=== PATIENT | male | born 1955 | race Caucasian/White ===

== ENCOUNTER 2020-12-12 08:12 | Outpatient (NON) | payer BC, SELFPAY ==
[2020-12-12 21:45] LABS: SARS-CoV-2 RNA PCR Positive
== END 2020-12-12 08:13 ==
LOC: ANHCOVIDDT 08:14
PROVIDERS: Family Provider Internal Medicine; PCP Internal Medicine; Visit Provider Internal Medicine
DX: U07.1 COVID-19 (principal)
CPT/HCPCS: C9803; U0003; U0005

== ENCOUNTER → 2022-06-09 11:26 | Outpatient (CLI) | payer BC, SELFPAY ==
--- NOTE | ~2022-06-09 | US_ITS ---
EXAMINATION:US venous doppler LE LT INDICATION:Left leg pain TECHNIQUE: Multiple grayscale, color flow and Doppler images of the left lower extremity deep venous systems were obtained and reviewed. COMPARISON:No prior studies for comparison. FINDINGS: The common femoral, superficial femoral and popliteal veins demonstrate normal respiratory variation, augmentation and compressibility. Color flow is also seen within the posterior tibial, pe roneal, greater saphenous and profunda veins. IMPRESSION: 1: No lower extremity deep venous thrombosis. Reviewed, dictated and finalized at location A.
== END ==
PROVIDERS: PCP Nurse Practitioner; Visit Provider Nurse Practitioner
DX: M79.662 Pain in left lower leg (principal)
CPT/HCPCS: 93971

== ENCOUNTER → 2022-06-19 11:07 | Outpatient (CLI) | payer BC, SELFPAY ==
--- NOTE | ~2022-06-19 | XR_ITS ---
XR knee LT 3V, XR tibia fibula LT 2V 06/19/2022 11:23 Indication: Left knee and leg pain Procedure: 3 views left knee and 2 views left tibia/fibula Comparison: No prior studies for comparison. Findings: There is moderate tricompartment osteoarthritis of the left knee. No significant joint effu sina. There are vascular calcifications. No acute fracture or traumatic malalignment. There is anatom ic alignment of the left tibia and fibula. No significant soft tissue abnormality. No foreign bodies. Impression: 1: No acute bone or joint abnormality. 2: Moderate tricompartment osteoarthritis of the left knee. Reviewed, dictated and finalized at location A. Impression: 1: No acute bone or joint abnormality. 2: Moderate tricompartment osteoarthritis of the left knee. Impression: 1: No acute bone or joint abnormality. 2: Moderate tricompartment osteoarthritis of the left knee.
== END ==
PROVIDERS: PCP Family Medicine; Visit Provider Family Medicine
DX: M17.12 Unilateral primary osteoarthritis, left knee (principal)
CPT/HCPCS: 73562; 73590

== ENCOUNTER 2022-06-26 14:06 | Outpatient (CLI) | payer BC, SELFPAY ==
--- NOTE | ~2022-06-26 | US_ITS ---
US arterial ankle brachial ind INDICATION: Leg pain TECHNIQUE: Segmental pressures and plethysmographic and Doppler waveforms of the brachial and lower e xtremity arteries were obtained. COMPARISON: None. FINDINGS: Right and left brachial artery pressures of 146 mm Hg and 145 mm Hg, respectively, are concordant (no rmal difference <= 30 mmHg). The right ankle-brachial index (KARYN) is 1.01 (normal >= 0.9-1.0). The right great toe-brachial index (TBI) is 0.71 (normal >= 0.60). The left KARYN is 1.02. The left TBI is 0.73. IMPRESSION: 1. Normal bilateral ankle and toe brachial indices. Reviewed, dictated and finalized at location A.
== END 2022-06-26 14:07 | disposition home or self-care (01) ==
PROVIDERS: PCP Family Medicine; Visit Provider Family Medicine
DX: M79.605 Pain in left leg (principal)
CPT/HCPCS: 93922

== ENCOUNTER 2022-12-31 08:00 | Outpatient (CLI) | payer BC, SELFPAY ==
--- NOTE | ~2022-12-31 | US_ITS ---
EXAMINATION: US art doppler w press VIGNESH THOMAS DATE: 12/31/2022 09:22 INDICATION: Peripheral arterial disease. TECHNIQUE: Segmental pressures and plethysmographic and Doppler waveforms of the brachial and lower e xtremity arteries were obtained. COMPARISON: Ultrasound 06/26/2022 FINDINGS: Right and left brachial artery pressures of 155 mm Hg and 155 mm Hg, respectively, are concordant (no rmal difference <= 30 mmHg). The right low-thigh pressure index is 1.16. The right ankle-brachial index (KARYN) is 1.07 (normal >= 0 .9-1.0). The right great toe-brachial index (TBI) is 0.34 (normal >= 0.65). Arterial Doppler wavefor ms are at least triphasic in common femoral artery and biphasic from superficial femoral artery to th e ankle. The left high-thigh pressure index is 1.41. The left KARYN is 1.14. The left TBI is 0.39. Arterial Dopp ler waveforms are biphasic from common femoral artery to the ankle. IMPRESSION: 1. Decreased TBIs (with interval worsening) and normal ABIs, consistent with arterial occlusive disea se. Note that ABIs may be overestimated if arteries are calcified. Reviewed, dictated and finalized at location A. A AUXILIARY IMPRESSION: 1. Decreased TBIs (with interval worsening) and normal ABIs, consistent with ar terial occlusive disease. Note that ABIs may be overestimated if arteries are c alcified.
== END 2022-12-31 08:01 | disposition home or self-care (01) ==
PROVIDERS: PCP Family Medicine; Visit Provider Nurse Practitioner Family
DX: I73.9 Peripheral vascular disease, unspecified (principal); M79.671 Pain in right foot; M79.672 Pain in left foot; R22.43 Localized swelling, mass and lump, lower limb, bilateral
CPT/HCPCS: 93923

== ENCOUNTER 2023-02-15 16:48 | Outpatient (CLI) | payer BC, SELFPAY ==
--- NOTE | 2023-02-15 17:06 | ECG_ITS ---
Measurements Intervals Breaks Rate: 69 P: 54 VT: 151 QRS: -2 QRSD: 88 T: 29 QT: 377 QTc: 406 Interpretive Statements SINUS RHYTHM EARLY PRECORDIAL R/S TRANSITION BORDERLINE ECG NO PREVIOUS ECG AVAILABLE FOR COMPARISON Electronically Signed On 02-15-2023 21:40:53 CDT by Obie Zambrano D.O.
[2023-02-15 17:08] LABS: Basophils Absolute Auto 0.1 K/mm3 (0.0-0.1); Basophils Percent Auto 0.8 % (0.2-1.2); Eosinophils Absolute Auto 0.1 K/mm3 (0-0.3); Eosinophils Percent Auto 1.2 % (0-4.4); Hematocrit 44.1 % (42.0-52.0); Immature Granulocyte Absolute 0.02 K/mm3 (0.00-0.031); Immature Granulocyte Percent A 0.3 % (0-0.5); Lymphocytes Absolute Auto 2.76 K/mm3 (0.9-3.2); Lymphocytes Percent Auto 35.7 % (18.3-44.2); Mean Corpuscular Hemoglobin 31.7 pg (26-34); Mean Corpuscular Volume 93.2 fl (80-100); Mean Platelet Volume 10.9 fl (7.4-10.4); Monocytes Absolute Auto 0.6 K/mm3 (0.1-0.6); Monocytes Percent Auto 7.1 % (2.6-8.5); Neutrophils Absolute Auto 4.3 K/mm3 (1.3-6.7); Neutrophils Percent Auto 54.9 % (45.5-73.1); Platelet Count Result 205 k/mm3 (150-375); Red Blood Count 4.73 M/mm3 (4.6-6.20); Red Cell Distribution Width 12.7 % (11.5-14.5); White Blood Count 7.7 K/mm3 (4.5-10.0)
[2023-02-15 17:11] LABS: Anion Gap 8 mmol/L (8-16); Blood Urea Nitrogen 21 mg/dL (9-20); Calcium 8.7 mg/dL (8.4-10.2); Carbon Dioxide 32 mmol/L (22-30); Chloride 99 mmol/L (98-107); Estimated Glomerular Filt Rate > 60; Glucose 112 mg/dL (65-110); Potassium 3.8 mmol/L (3.4-5.0); Sodium 139 mmol/L (137-145)
[2023-02-15 18:02] LABS: Appearance Urine Clear (Clear); Bacteria Urine None Seen /hpf; Bilirubin Urine Negative (Negative); Blood Urine 3+ (Negative); Color Urine Yellow (Yellow); Glucose Urine UA Negative (Negative); Ketones Urine Negative (Negative); Leukocyte Esterase Ur Negative LEU/UL (Negative); Nitrate Urine Negative (Negative); Non Pathogenic Casts 0-2; Protein Urine Negative (Negative); RBC Urine 21-50 /hpf (0-2); Specific Grav Ur 1.017 (1.001-1.035); Squamous Epithelial Cell Urine None seen /hpf (Few); WBC Urine 0-5 /hpf; pH Urine 6.5 (5.0-9.0)
[2023-02-15 18:07] LABS: Add Urine Microscopic? YES
== END 2023-02-15 16:49 | disposition home or self-care (01) ==
PROVIDERS: PCP Family Medicine; Visit Provider Nurse Practitioner Family
DX: M17.12 Unilateral primary osteoarthritis, left knee (principal); I10 Essential (primary) hypertension
CPT/HCPCS: 36415; 80048; 81001; 85025; 93005

== ENCOUNTER 2023-03-09 13:38 | Outpatient (CLI) | payer BC, SELFPAY ==
[2023-03-09 15:17] LABS: Albumin Level 4.3 g/dL (3.5-5.1)
[2023-03-09 15:20] LABS: Hemoglobin A1C 5.6 % (<5.7)
[2023-03-09 15:27] LABS: Urine Cotinine NEGATIVE
[2023-03-09 15:33] LABS: INR 1.1; Partial Thromboplastin Time 27.8 SECONDS (22.3-36.8); Prothrombin Time 13.5 Seconds (11.1-14.7)
[2023-03-10 10:45] LABS: Appearance Urine Clear (Clear); Bacteria Urine None Seen /hpf; Bilirubin Urine Negative (Negative); Blood Urine 1+ (Negative); Color Urine Yellow (Yellow); Glucose Urine UA Negative (Negative); Ketones Urine Negative (Negative); Leukocyte Esterase Ur 1+ LEU/UL (Negative); Need Manual Microscopic Reviewed; Nitrate Urine Negative (Negative); Non Pathogenic Casts 0-2; Protein Urine Negative (Negative); Specific Grav Ur 1.006 (1.001-1.035); Squamous Epithelial Cell Urine None seen /hpf (Few); WBC Urine 0-5 /hpf
[2023-03-10 10:47] LABS: Add Urine Microscopic? YES
== END 2023-03-09 13:39 | disposition home or self-care (01) ==
LOC: ANHSURGERY 13:42
PROVIDERS: PCP Family Medicine; Visit Provider Orthopaedic Surgery
DX: Z01.812 Encounter for preprocedural laboratory examination (principal); M17.12 Unilateral primary osteoarthritis, left knee
CPT/HCPCS: 80307; 81001; 82040; 83036; 85610; 85730; 87081

== ENCOUNTER 2023-03-23 01:39 | Day surgery (SDC) | payer BC, SELFPAY ==
[2023-03-09 14:07] VITALS: BP 144/78; PULSE 63; RESP 16; TEMP 37; O2SAT 99; BMI 36.4
--- NOTE | 2023-03-09 14:24 | PC.NURSE ---
Report to the Outpatient Waiting Room, entrance under the green pavilion located off [facility], at time __8:30AM on date _03/23/23 . Planned Procedure Time: __10:30AM . Time changes happen often and if your time is changed the preop area will call you the afternoon before. - You and your visitor will be asked to self-screen and do not enter if you have any COVID symptoms. - A mask is optional within the hospital at this time. Patients may have clear liquids (water, carbonated beverages, clear teas, apple juice) until 3 hours prior to surgery with a maximum of 20 ounces. - No food from midnight until time of surgery Take the following medications with a SIP of water the morning of surgery: ____NONE DO NOT STOP ANY OF YOUR OTHER PRESCRIPTION MEDICATIONS PRIOR TO SURGERY ?EXCEPT THE FOLLOWING Medications to discontinue per physician HOLD ASPIRIN 7 DAYS PRE-OP PER DR HOPKINS(PER PATIENT) Date to take last dose___03/16/23 Please no make-up, nail cook islander, hairspray, perfume, deodorant, or body powder the day of surgery. No jewelry (including any body piercings) or valuables the day of surgery, leave them at home. Please take a shower or bath the night before, or the morning of, surgery with an antibacterial soap. Wear comfortable, loose fitting clothing. Children are encouraged to wear pajamas. - Jewelry must be removed prior to entering the operating room. Rings and piercings that are not removed may be cut off. - The hospital will not accept responsibility for valuables. - Please leave all valuables, including medications, at home the day of surgery. If you are going home after surgery, a licensed log truck driver must drive you home. - NO public transportation without another adult if you receive anesthesia. - We recommend that an adult stay with you for 24 hours following discharge. - We also recommend that you do not drive, make important decision, drink alcoholic beverages, or take any drugs that were not prescribed by your health care provider for at least 24 hours after your discharge time. Follow any additional instructions given to you from your surgeon. If you or anyone in your household have experienced Covid symptoms in the past week, please notify your surgeon or the nurse liaison at the phone number below for possible testing. Telephone instructions given to _PATIENT and asked if any additional questions and then verbalized understanding. Patient advised to call surgeon office or pre surgery nurse liaison [phone] if any additional questions.
[2023-03-23] VITALS (14 sets, daily range): BP systolic 112–168; BP diastolic 66–98; PULSE 64–97; RESP 12–20; TEMP 36.3–36.9; O2SAT 94–100
--- NOTE | ~2023-03-23 | XR_ITS ---
EXAMINATION: [id number]_CR DATE: 03/23/2023 13:16 INDICATION: Postoperative evaluation following left total knee arthroplasty. TECHNIQUE: Anteroposterior and lateral views of the left knee were obtained. COMPARISON: None. FINDINGS: Left total knee arthroplasty without patellar resurfacing appears well seated and in near anatomic al ignment. No fractures identified. Expected postoperative subcutaneous, intra-articular and intra-art icular gas. Anterior skin chris. IMPRESSION: 1. Left total knee arthroplasty, negative for postoperative purposes. Reviewed, dictated and finalized at location L.
--- NOTE | 2023-03-23 07:14 | WPDHPUPDATE1 ---
History and Physical Update Update Date/Time: 03/23/23 07:14 History and Physical has been reviewed, including an updated exam of the patient. There are NO changes in the patient's condition. Risks, benefits, and alternatives have been discussed and questions answered. Patient agrees to proceed with procedure.
[2023-03-23] MEDS: ACETAMINOPHEN 500 MG TABLET 1000 MG PO (08:41)
[2023-03-23] MEDS: LACTATED RINGERS 1,000 ML 30 ML IV CONT ×2 (08:55→13:07)
[2023-03-23] MEDS: TRANEXAMIC ACID 1,000MG/ISO100 1,000 MG/100 ML BAG 200 MG IVPB (10:02)
--- NOTE | 2023-03-23 10:23 | WPDANESEPPF ---
Anes - Initial Pre Proc Eval Procedure: Operation Date: 03/23/23 10:30 Proposed Procedures p Left Total Knee Arthroplasty - Maurice Estevez MD Date/Time: 03/23/23 10:23 Surgeon: Maurice Estevez MD Pre Op Diagnosis: left knee oa Patient Data Age: 67 Gender: M Height: 1.64 m Weight: 94.5 kg Last Vital Signs Temp 36.6 C 03/23/23 09:09 Pulse 64 03/23/23 09:09 Resp 16 03/23/23 09:09 BP 132/83 03/23/23 09:09 Pulse Ox 100 03/23/23 09:09 O2 Del Method Room Air 03/23/23 09:09 Allergies Allergy/AdvReac Type Severity Reaction Status Date / Time sulfamethoxazole Allergy Unknown RASH ARMS, Verified 03/23/23 08:39 UPPER TORSO trimethoprim Allergy Unknown RASH ARMS, Verified 03/23/23 08:39 UPPER TORSO Home Medications Medication Instructions Recorded Confirmed Type aspirin 81 mg tablet,delayed 81 mg PO DAILY 01/11/20 03/23/23 History release hydrochlorothiazide 25 mg tablet 25 mg PO QAM 03/09/23 03/23/23 History ibuprofen 800 mg tablet 800 mg PO BID PRN Pain 03/09/23 03/23/23 History chlorhexidine gluconate 4 % 1 applic topical DAILY #237 mL 03/10/23 03/23/23 Rx topical liquid (Hibiclens) rosuvastatin 10 mg tablet 10 mg PO DAILY #30 tabs 03/17/23 03/23/23 Rx Laboratory Tests 03/23/23 09:00 Blood Type A Positive Antibody Screen Negative Patient hx anesthesia problems: none Family hx anesthesia problems: none Results Review: All pre-operative results and documents have been reviewed as part of the pre-operative evaluation. [facility] Past Medical History Medical History Bilateral foot pain Carotid artery disease without cerebral infarction Carotid occlusion, right Degenerative arthritis of left knee DJD (degenerative joint disease) of knee Essential hypertension History of smoking 25-50 pack years Hyperlipidemia LDL goal <100 Knee pain, left Localized swelling of both lower legs Peripheral artery disease Peripheral artery insufficiency Right knee pain Family History Family History Other Family history of malignant neoplasm Hypertension Social History Social History Smoking packs per day: 1 Smoking cigarettes per day: 20.0 Years smoked: 30 Smoking pack-years: 30.00 Smoking status: Former smoker Tobacco type: cigarettes Second hand tobacco smoke exposure: Yes Smoking end date: 05/22/05 Alcohol intake: current Substance use: never Substance use type: does not use Living arrangements: with family Additional living arrangements comments: Occupation/Education: occupation Gender identity (if verbalized by the patient): Male Sexual Orientation (if Verbalized by the Patient): Straight or Heterosexual Spiritual care concerns: No Anes - Eval Final PreProcedure Day of Procedure 03/23/23 10:23 Patient weight: obese Heart: regular rate and rhythm Lungs: decreased breath sounds Airway: Mallampati scale class II Neurological: alert and oriented Last oral intake: >/= 8 hours ASA classification: III Emergent: no Anesthetic plan: proceed Anesthesia type and monitoring: general LMA and standard monitoring Results Review: All pre-operative results and documents have been reviewed as part of the pre-operative evaluation. Informed Consent: The patient's anesthetic plan and its attendant risks and benefits were discussed with the patient/family/POA. Questions were solicited and answers provided to the satisfaction of the patient/family/POA.
[2023-03-23] MEDS: ceFAZolin 2 GM/D5W 50 ML 2 GM/50 ML BAG IVPB ×2 (10:59→18:43)
[2023-03-23] MEDS: GENTAMICIN BONE CEMENT REFOBACIN 1 EACH TOPICAL (11:44)
--- NOTE | 2023-03-23 12:55 | W.PM.PROC2 ---
Procedure Note - Detailed Date of Procedure 03/23/23 Pre-op Diagnosis left knee oa Post-op Diagnosis Same Procedure Performed L TKA Surgeon Maurice Estevez MD Anesthesia General Description of Procedure THE LEFT KNEE WAS PREPPED AND DRAPED IN THE STERILE FASHION. A MIDLINE SKIN INCISION WAS MADE. A MEDIAL PARAPATELLAR ARTHROTOMY WAS MADE. THE PATELLA WAS EVERTED. THERE WAS TRICOMPARTMENT DJD. THE TOURNIQUET WAS DEFLATED AFTER 7 MIN FROM TIME OF INFLATION. AN INTRAMEDULLARY SARAHY WAS PLACED IN THE FEMUR. A DISTAL FEMORAL CUT WAS MADE IN 5 DEGREES OF VALGUS REMOVING APPROXIMATELY 9 MM OF BONE FROM THE DISTAL FEMUR. THE FEMUR WAS SIZED TO 70. A FEMORAL CUTTING BLOCK WAS PLACED IN 3 DEGREES OF EXTERNAL ROTATION AND IN ALIGNMENT WITH DEEPAK'S LINE AND THE TRANSEPICONDYLAR AXIS. ANTERIOR POSTERIOR AND CHAMFER CUTS WERE MADE. THE CUTS WERE EXCELLENT. NEXT AN INTRAMEDULLARY CUTTING GUIDE WAS PLACED IN THE TIBIA. A TRANS TIBIAL CUT WAS MADE ALONG THE LONG AXIS OF THE TIBIA. APPROXIMATELY 10 MM OF BONE WAS REMOVED FROM THE HIGH SIDE OF THE TIBIA. THE TIBIA WAS THEN PLANED TO A SMOOTH SURFACE. POSTERIOR FEMORAL OSTEOPHYTES WERE REMOVED FROM THE FEMORAL CONDYLES. A 75 TIBIAL TRIAL WAS PLACED IN ALIGNMENT WITH THE 1/3 MEDIAL ASPECT OF THE TIBIAL TUBERCLE. THEN A 70 FEMORAL TRIAL COMPONENT WAS PLACED. BOTH HAD EXCELLENT FITS. EVENTUALLY A 10MM CR POLYETHYLENE TRIAL COMPONENT WAS PLACED. THE KNEE WAS TAKEN THROUGH A RANGE OF MOTION. THE KNEE CAME OUT TO FULL EXTENSION. THERE WAS NO ABNORMAL TILT TO THE PATELLA. THERE WAS GOOD A/P AND VARUS/VALGUS STABILITY. THERE WAS NO EXCESSIVE ROLL BACK WITH FLEXION. THE TRIAL COMPONENTS WERE REMOVED. THE TOURNIQUET WAS INFLATED AGAIN. THEN A 70 FEMORAL COMPONENT AND 75 TIBIAL COMPONENT WITH A 10 CR POLYETHYLENE COMPONENT WERE CEMENTED INTO PLACE. ONCE THE CEMENT WAS HARD THE KNEE WAS TAKEN THROUGH A ROM AGAIN AND FOUND TO BE STABLE WITH NO PATELLA TILT NO EXCESSIVE ROLL BACK WITH FLEXION AND GOOD STABILITY WITH COMPLETE AND FULL EXTENSION. THE TOURNIQUET WAS DEFLATED AGAIN. THE KNEE WAS IRRIGATED WITH STERILE BETADINE AND WATER FOR ABOUT 3 MINUTES. THE BLEEDERS WERE CAUTERIZED. THE ARTHROTOMY WAS REPAIRED WITH NUMBER 1 VICRYL. THE SUB CUTANEOUS LAYER WITH 2-0 VICRYL AND THE SKIN WITH TOM. THE WOUND WAS WASHED AND A STERILE DRESSING WAS APPLIED. PATIENT WAS EXTUBATED. Estimated Blood Loss 50 Pathology None sent Complications No immediate complications Condition Stable Disposition PACU
[2023-03-23] MEDS: fentaNYL CITRATE INJ (*CRX) 100 MCG/2 ML VIAL 25 MCG IV PUSH ×4 (13:05→13:50)
[2023-03-23] MEDS: diazePAM INJ (*CRX) 10 MG/2 ML SYRINGE 2.5 MG IV PUSH (13:31)
--- NOTE | 2023-03-23 13:34 | WPDANESPNB ---
Anes - Peripheral Nerve Block Date/Time: 03/23/23 13:34 I have discussed with the patient/family/POA the placement of a peripheral nerve block for post-operative pain management, including associated risks, benefits, complications, and side effects. Alternative methods of post-operative analgesia were detailed. Questions were solicited and answers provided to the satisfaction of the patient/family/POA. Time-Out: A pre-procedural Time-Out was completed immediately before starting the procedure and confirmed: Patient Identification, Site, Procedure, Patient Position and the Availability of Requisite Equipment. Clinical Indications: Acute post-operative pain management requested by the operative surgeon. Nerve Block Insertion Note Anes-nerve block: adductor canal left Patient position: supine Skin prep: chlorhexidine Needle: 22 gauge, stimulating, insulated echogenic needle. Needle length: 80 mm Technique: ultrasound Technique comment: done post op in recovery Injectate: bupivacaine 0.5% with epi 5 mcg/ml (30ml no epi) and dexamethasone (mg) (4) Observations: tolerated well Complications: none Procedure start time:: 1320 Procedure end time:: 1326
--- NOTE | 2023-03-23 14:33 | PC.NURSE ---
This patient, Dino Augustine, was admitted to 2 Medical Room 242-01. Patient/family oriented to hospital policies and general routines including ID bracelet, bed and alarms, visiting hours, pain management, procedures, bathroom and other care routines, personal items, smoking policy, room service/diet, and visiting hours. Information on how to activate the Rapid Response Team has been discussed. Patient/Family are encouraged to report perceived risks to care and to ask questions if they do not understand what they are told or what they should do.
[2023-03-23] MEDS: SODIUM CHLORIDE 0.9% IV 1,000 ML 125 ML IV CONT (16:28)
[2023-03-23] MEDS: KETOROLAC 15 MG/ML VIAL (*BKC) IV PUSH ×2 (16:29→23:09)
[2023-03-23] MEDS: SENNA/DOCUSATE SODIUM TABLET 2 TAB PO (16:29)
[2023-03-23] MEDS: ASPIRIN 325 MG ENTERIC TABLET PO (20:54)
[2023-03-23] MEDS: FAMOTIDINE 20 MG TABLET PO (20:54)
[2023-03-24] MEDS: ceFAZolin 2 GM/D5W 50 ML 2 GM/50 ML BAG IVPB ×2 (02:59→10:37)
[2023-03-24 03:56] VITALS: BP 112/66; PULSE 64; RESP 18; TEMP 36.1; O2SAT 96
[2023-03-24] MEDS: KETOROLAC 15 MG/ML VIAL (*BKC) IV PUSH ×2 (05:38→12:03)
[2023-03-24 05:41] LABS: Basophils Percent Auto 0.1 % (0.2-1.2); Hematocrit 37.1 % (42.0-52.0); Hemoglobin 12.3 g/dL (14.0-18.0); Immature Granulocyte Absolute 0.14 K/mm3 (0.00-0.031); Immature Granulocyte Percent A 0.7 % (0-0.5); Lymphocytes Absolute Auto 1.22 K/mm3 (0.9-3.2); Lymphocytes Percent Auto 5.8 % (18.3-44.2); Mean Corpuscular HGB Conc 33.2 g/dl (32-36); Mean Corpuscular Hemoglobin 31.3 pg (26-34); Mean Corpuscular Volume 94.4 fl (80-100); Mean Platelet Volume 11.2 fl (7.4-10.4); Monocytes Absolute Auto 1.9 K/mm3 (0.1-0.6); Monocytes Percent Auto 9.1 % (2.6-8.5); Neutrophils Absolute Auto 17.8 K/mm3 (1.3-6.7); Neutrophils Percent Auto 84.3 % (45.5-73.1); Platelet Count Result 180 k/mm3 (150-375); Red Blood Count 3.93 M/mm3 (4.6-6.20); Red Cell Distribution Width 12.6 % (11.5-14.5); White Blood Count 21.1 K/mm3 (4.5-10.0)
[2023-03-24 05:52] LABS: Anion Gap 6 mmol/L (8-16); Blood Urea Nitrogen 20 mg/dL (9-20); Calcium 8.3 mg/dL (8.4-10.2); Carbon Dioxide 26 mmol/L (22-30); Chloride 102 mmol/L (98-107); Estimated CRCL calculation 75 ml/min; Estimated Glomerular Filt Rate > 60; Glucose 126 mg/dL (65-110); Potassium 4.3 mmol/L (3.4-5.0); Sodium 134 mmol/L (137-145)
[2023-03-24] MEDS: ROSUVASTATIN 10 MG TABLET PO (08:13)
[2023-03-24] MEDS: FAMOTIDINE 20 MG TABLET PO (08:13)
[2023-03-24] MEDS: hydroCHLOROthiazide 25 MG TABLET PO (08:13)
[2023-03-24] MEDS: polyethylene glycoL 3350 17 GM POWD.PACK PO (08:13)
[2023-03-24] MEDS: ASPIRIN 325 MG ENTERIC TABLET PO (08:13)
[2023-03-24] MEDS: SENNA/DOCUSATE SODIUM TABLET 2 TAB PO ×2 (08:13→16:23)
[2023-03-24] MEDS: oxyCODONE/ACETAMINOPHEN (*CRX) 5-325 MG TABLET 1 TABLET PO (09:11)
[2023-03-24 09:34] VITALS: BP 119/76; PULSE 71; RESP 16; TEMP 36.6; O2SAT 96
[2023-03-24 11:56] VITALS: BP 122/74; PULSE 64; RESP 18; TEMP 36.7; O2SAT 96
--- NOTE | 2023-03-24 12:13 | WPDANESPN ---
Anes - Prog Note Post-Op Date/Time: 03/24/23 12:13 Vital Signs: Last Vital Signs Temp 36.6 C 03/24/23 09:34 Pulse 71 03/24/23 09:34 Resp 16 03/24/23 09:34 BP 119/76 03/24/23 09:34 Pulse Ox 96 03/24/23 09:34 O2 Del Method Room Air 03/24/23 08:59 O2 Flow Rate 8 03/23/23 13:05 Pain Score (VAS): 0 I/O: Intake & Output 03/23/23 03/24/23 03/24/23 23:59 07:59 15:59 Intake Total 570 550 480 Output Total 500 300 Balance 70 250 480 Laboratory Tests 03/24/23 05:13 03/24/23 05:13 03/24/23 05:13 WBC 21.1 H RBC 3.93 L Hgb 12.3 L Hct 37.1 L MCV 94.4 MCH 31.3 MCHC 33.2 RDW 12.6 Plt Count 180 MPV 11.2 H Immature Gran % (Auto) 0.7 H Neut % (Auto) 84.3 H Lymph % (Auto) 5.8 L [place] % (Auto) 9.1 H Eos % (Auto) 0.0 Baso % (Auto) 0.1 L Lymph # (Auto) 1.22 [place] # (Auto) 1.9 H Eos # (Auto) 0.0 Baso # (Auto) 0.0 Abs Immat Gran (auto) 0.14 H Absolute Neuts (auto) 17.8 H Absolute Nucleated RBC 0.0 Nucleated RBC % 0.0 Sodium 134 L Potassium 4.3 Chloride 102 Carbon Dioxide 26 Anion Gap 6 L BUN 20 Creatinine 0.90 Estim Creat Clear Calc 75 Estimated GFR > 60 Glucose 126 H Calcium 8.3 L Patient Feedback: Patient satisfied with anesthetic care.
--- NOTE | 2023-03-24 13:30 | PCCCNOTE ---
On 03/24/23, the student, [Mya Kraus ], provided care and completed [facility] documentation on this patient. I have reviewed the student's documentation and agree with the findings.
--- NOTE | 2023-03-24 15:56 | PM.DS ---
DS: Admitting Diagnosis Discharge Date 03/24/23 Admitting Diagnosis LEFT KNEE DJD DS: Discharge Diagnosis Discharge Diagnosis (1) S/P total knee arthroplasty: Code(s): Z96.659 - Presence of unspecified artificial knee joint Status: Acute Assessment and Plan: LEFT TKA POD 1 DOING WELL. F/U IN 3 WEEKS ORTHOPEDICS Plan F/U IN 3 WEEKS DS: Summary Hospital Course Reason for hospitalization: LEFT TKA PATIENT WAS ADMITTED S/P TOTAL KNEE ARTHROPLASTY FOR POSTOPERATIVE MEDICAL MANAGEMENT, PAIN CONTROL AND MOBILIZATION WITH PHYSICAL AND OCCUPATIONAL THERAPY. THE PATIENT PROGRESSED WELL WITH PT/OT. LABS AND VITALS REMAINED STABLE AND PAIN WELL CONTROLLED. THE PATIENT HAS BEEN CLEARED TO BE DISCHARGED KNEE. FOLLOW UP APPOINTMENT SCHEDULED. DISCHARGE INSTRUCTIONS DISCUSSED AT LENGTH WITH THE PATIENT. MEDICATIONS REVIEWED. Hospital Course: PATIENT WAS ADMITTED S/P TOTAL KNEE ARTHROPLASTY FOR POSTOPERATIVE MEDICAL MANAGEMENT, PAIN CONTROL AND MOBILIZATION WITH PHYSICAL AND OCCUPATIONAL THERAPY. THE PATIENT PROGRESSED WELL WITH PT/OT. LABS AND VITALS REMAINED STABLE AND PAIN WELL CONTROLLED. THE PATIENT HAS BEEN CLEARED TO BE DISCHARGED KNEE. FOLLOW UP APPOINTMENT SCHEDULED. DISCHARGE INSTRUCTIONS DISCUSSED AT LENGTH WITH THE PATIENT. MEDICATIONS REVIEWED. Status at Discharge Cognitive/behavioral status at discharge: STABLE Functional status at discharge: uses cane/walker Time Spent with Patient Time attestation: Total time spent providing and/or coordinating discharge services: Exam Extrem: Other: VSS AFEBRILE DRESSING DRY NV INTACT, DOPPLERABLE AND PALPABLE PULSES, CALF SOFT NON TENDER NEG HOMANS SIGN DS: Data Data Completed and Pending Labs on day of discharge: Labs from last 24 hours 03/24/23 05:13 WBC 21.1 H RBC 3.93 L Hgb 12.3 L Hct 37.1 L MCV 94.4 MCH 31.3 MCHC 33.2 RDW 12.6 Plt Count 180 MPV 11.2 H Immature Gran % (Auto) 0.7 H Neut % (Auto) 84.3 H Lymph % (Auto) 5.8 L [place] % (Auto) 9.1 H Eos % (Auto) 0.0 Baso % (Auto) 0.1 L Lymph # (Auto) 1.22 [place] # (Auto) 1.9 H Eos # (Auto) 0.0 Baso # (Auto) 0.0 Abs Immat Gran (auto) 0.14 H Absolute Neuts (auto) 17.8 H Absolute Nucleated RBC 0.0 Nucleated RBC % 0.0 Sodium 134 L Potassium 4.3 Chloride 102 Carbon Dioxide 26 Anion Gap 6 L BUN 20 Creatinine 0.90 Estim Creat Clear Calc 75 Estimated GFR > 60 Glucose 126 H Calcium 8.3 L Procedures/Treatments: LEFT TKA Discharge Plan Discharge Patient Disposition: Home Health Service Discharge Instructions: Post Op Total Knee Replacement Instructions Dr. Maurice Esteevz [phone] Your dressing will be changed prior to your discharge. You will be sent home with one additional dressing to be changed on post op day 7 by the home health RN. Your chris will be removed on the 14th day after surgery and steri-strips will be placed. Please practice good hand hygiene and do not touch your incision in order to prevent infection. You may shower with your dressing but do not submerge in a bath tub. Do not drive or operate machinery until you are released by Dr. Estevez. Do not walk without a walker for any reason until you are released by Dr. Estevez. Continue to use your ice machine. Please use a towel or pillow case to protect your skin before applying your ice machine. Do NOT place a pillow under your knee. You may use a pillow from the calf down if needed. This will prevent a flexion contracture postoperatively. You may begin use of your CPM machine at home if you have been given one pre-operatively. DO NOT USE WHILE YOU ARE SLEEPING. Your first post op appointment was sent to you via mail preoperatively. If you have any questions or are unable to make your appointment, please contact our office for scheduling questions. Your medications have been sent to your pharmacy. You have been sent home with pain medication. Please pick up attendant an over the count
== END 2023-03-24 16:57 | disposition home health service (06) ==
LOC: ANHSURGERY 08:28 → ANH2MED 14:18
PROVIDERS: PCP Family Medicine; Visit Provider Orthopaedic Surgery
PROC: (CPT 27447; principal; 2023-03-23 10:30)
DX: M17.12 Unilateral primary osteoarthritis, left knee (principal); G89.18 Other acute postprocedural pain; I10 Essential (primary) hypertension; I73.9 Peripheral vascular disease, unspecified; E78.5 Hyperlipidemia, unspecified; I65.21 Occlusion and stenosis of right carotid artery; Z79.82 Long term (current) use of aspirin; Z87.891 Personal history of nicotine dependence; E66.9 Obesity, unspecified; Z68.34 Body mass index [BMI] 34.0-34.9, adult
CPT/HCPCS: 27447; 64447; 36415; 73560; 80048; 85025; 86850; 86900; 86901; 97110; 97116; 97161; 97165; 97535; A9270; C1713; C1776; J0171; J0690; J1100; J1885; J2250; J2270; J2370; J2405; J2704; J2795; J3010; J3360; J7030; J7120

== ENCOUNTER 2023-06-09 10:00 | Outpatient (RCR) | payer BC, SELFPAY ==
--- NOTE | 2023-04-22 15:47 | PTOPEVAL1 ---
Assessment and note entered by Beckie Luna DPT Evaluation Information Assessment Status Evaluation Subjective Information Pt is s/p L TKA on 03/23/23. Reports a lot of stiffness with bending still. Had home health therapy until about 2 weeks ago. Highest pain 6-7/ 10 and lowest 0/10. Returns to [place] in about 3 months. 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 Tentative return date in approximately 2 months. Has been able to return to most ADL's. Has stairs to his basement, is not able to alternate his feet yet. No assistive device anymore. Patient goal: walk normally, get back to work. Reported Pain Level Pain Score 4: Self Report Assessment PT Clinical Summary The patient is presenting to skilled therapy s/p L TKA on 03/23/23. He presents with decreased range of motion, decreased strength, and gait/stair impairments which are contributing to his pain and difficulty walking with a normal gait pattern and returning to work. He will highly benefit from therapy to address his impairments and return to prior level of function. Plan of Care Interventions Electrical Stimulation,Gait Training,Hot Pack/Cold Pack,Manual Therapy,Neuro Re-education,Patient/ Caregiver Education,Therapeutic Activities, Therapeutic Exercise PT Services Indicated Yes Treatment Frequency and 2 times a week for 4 weeks Duration These treatments will address the objective and functional deficits as defined above. The patient will be advanced safely and appropriately in order for the patient to progress towards his/her prior level of function. Additional exercises will be introduced and as well as a comprehensive home exercise program upon discharge, if needed, ?to ensure carryover of functional gains achieved in the clinic. This treatment plan has been reviewed and agreement upon by the patient.
--- NOTE | 2023-04-22 15:48 | OPREHPOC ---
Outpatient Therapy Plan of Care This is a Multidisciplinary Plan of Care that may contain components documented by all disciplines (PT, OT, and ST.) PT Problem 1 PT Problem #1 Knowledge Deficit PT Goal 1 Goal 1. Patient will perform independent HEP Target Visit 8 PT Problem 2 PT Problem #2 Pain PT Goal 1 Goal 1. Patient will do household and community ambulation with pain no higher than 3/10 in order to prepare for returning to work Target Visit 8 PT Problem 3 PT Problem #3 Impaired Range of Motion PT Goal 1 Goal 1. Patient will demo 120 degrees active left knee flexion for stairs Target Visit 8 PT Goal 2 Goal 2. Patient will demo 0 degrees left knee extension to normalize gait pattern Target Visit 8
--- NOTE | 2023-05-20 13:10 | OPREHPOC ---
Outpatient Therapy Plan of Care This is a Multidisciplinary Plan of Care that may contain components documented by all disciplines (PT, OT, and ST.) PT Problem 1 PT Problem #1 Knowledge Deficit PT Goal 1 Goal 1. Patient will perform independent HEP Target Visit 8 Progress Met PT Problem 2 PT Problem #2 Pain PT Goal 1 Goal 1. Patient will do household and community ambulation with pain no higher than 3/10 in order to prepare for returning to work Target Visit 8 Progress Met PT Goal 2 Goal NEW GOAL 2. Patient will return to work with pain no higher than 2/10 Target Visit 16 PT Problem 3 PT Problem #3 Impaired Range of Motion PT Goal 1 Goal 1. Patient will demo 120 degrees active left knee flexion for stairs Target Visit 8 Progress Partially Met Comment 111 PT Goal 2 Goal 2. Patient will demo 0 degrees left knee extension to normalize gait pattern Target Visit 8 Progress Met
--- NOTE | 2023-05-20 13:10 | PTOPPROG ---
Assessment and note entered by Beckie Luna DPT Evaluation Information Assessment Status Progress Subjective Information Highest pain recently 2/10 and lowest 0/10. Has been able to be more mobile at home but needs breaks at times. Navigating stairs to his basement but is still not able to do a reciprocal pattern due to no railing and they are steep. Returns to [place] some time in June. Has not yet returned to work. Assessment PT Clinical Summary The patient has made good progress in therapy and demonstrates improved range of motion, improved strength, and greatly decreased pain. He has been able to return to ADL's with minimal limitation but has not yet returned to work. He continues to lack full knee flexion, currently at 111 degrees. He will benefit from further therapy to improve motion, further decrease pain, and allow for all activities including work. Plan of Care Interventions Electrical Stimulation,Gait Training,Hot Pack/Cold Pack,Manual Therapy,Neuro Re-education,Patient/ Caregiver Education,Therapeutic Activities, Therapeutic Exercise,Self-Care/Home Management PT Services Indicated Yes Treatment Frequency and 1-2 times a week for 4 weeks Duration These treatments will address the objective and functional deficits as defined above. The patient will be advanced safely and appropriately in order for the patient to progress towards his/her prior level of function. Additional exercises will be introduced and as well as a comprehensive home exercise program upon discharge, if needed, ?to ensure carryover of functional gains achieved in the clinic. This treatment plan has been reviewed and agreement upon by the patient.
--- NOTE | 2023-06-15 09:47 | PTOPDC ---
Assessment and note entered by NORMA YoussefT Evaluation Information Assessment Status Discharge - Pt Not Present Subjective Information Assessment PT Clinical Summary Patient is self discharging from therapy- reports he has returned to work without issue. Plan of Care PT Services Indicated No
== END 2023-06-15 15:03 | disposition home or self-care (01) ==
LOC: ANHPT 10:00
PROVIDERS: PCP Family Medicine; Visit Provider Orthopaedic Surgery
DX: Z47.1 Aftercare following joint replacement surgery (principal); Z96.652 Presence of left artificial knee joint
CPT/HCPCS: 97014; 97110; 97116; 97140; 97161; 97530; G0283

== ENCOUNTER 2023-07-23 09:11 | Outpatient (CLI) | payer BC, SELFPAY ==
[2023-07-23 12:32] LABS: Alanine Aminotransferase 19 U/L (6-50); Albumin Level 4.3 g/dL (3.5-5.1); Alkaline Phosphatase 75 U/L (38-126); Anion Gap 6 mmol/L (8-16); Aspartate Amino Transferase 41 U/L (17-59); Bilirubin,Total 0.8 mg/dL (0.2-1.3); Blood Urea Nitrogen 17 mg/dL (9-20); Calcium 8.8 mg/dL (8.4-10.2); Carbon Dioxide 30 mmol/L (22-30); Chloride 103 mmol/L (98-107); Estimated Glomerular Filt Rate > 60; Glucose 94 mg/dL (65-110); HDL Direct 46 mg/dL; Potassium 3.8 mmol/L (3.4-5.0); Sodium 139 mmol/L (137-145)
[2023-07-23 12:43] LABS: LDL Cholesterol Direct 77 mg/dL
[2023-07-23 13:01] LABS: Prostate Specific Antigen 1.1 ng/mL (< OR = 4.0)
[2023-07-23 13:31] LABS: Cholesterol 158 mg/dL (0-200); Triglycerides 150 mg/dL (<150)
== END 2023-07-23 09:12 | disposition home or self-care (01) ==
LOC: ANHGOSHLAB 09:12
PROVIDERS: PCP Family Medicine; Visit Provider Family Medicine
DX: E78.5 Hyperlipidemia, unspecified (principal); I10 Essential (primary) hypertension; Z12.5 Encounter for screening for malignant neoplasm of prostate
CPT/HCPCS: 36415; 80053; 80061; 84153; G0103

== ENCOUNTER 2023-08-25 09:49 | Outpatient (CLI) | payer BC, SELFPAY ==
[2023-08-25 10:52] LABS: Basophils Absolute Auto 0.1 K/mm3 (0.0-0.1); Basophils Percent Auto 0.8 % (0.2-1.2); Eosinophils Absolute Auto 0.1 K/mm3 (0-0.3); Eosinophils Percent Auto 0.8 % (0-4.4); Hematocrit 42.6 % (42.0-52.0); Hemoglobin 14.2 g/dL (14.0-18.0); Immature Granulocyte Absolute 0.02 K/mm3 (0.00-0.031); Immature Granulocyte Percent A 0.3 % (0-0.5); Lymphocytes Percent Auto 41.7 % (18.3-44.2); Mean Corpuscular HGB Conc 33.3 g/dl (32-36); Mean Corpuscular Hemoglobin 30.9 pg (26-34); Mean Corpuscular Volume 92.6 fl (80-100); Mean Platelet Volume 11.4 fl (7.4-10.4); Monocytes Absolute Auto 0.7 K/mm3 (0.1-0.6); Monocytes Percent Auto 11.5 % (2.6-8.5); Neutrophils Absolute Auto 2.7 K/mm3 (1.3-6.7); Neutrophils Percent Auto 44.9 % (45.5-73.1); Platelet Count Result 179 k/mm3 (150-375); Red Cell Distribution Width 13.1 % (11.5-14.5)
[2023-08-25 11:01] LABS: Appearance Urine Clear (Clear); Bacteria Urine None Seen /hpf; Bilirubin Urine Negative (Negative); Blood Urine 1+ (Negative); Color Urine Yellow (Yellow); Glucose Urine UA Negative (Negative); Ketones Urine Negative (Negative); Leukocyte Esterase Ur Trace LEU/UL (Negative); Nitrate Urine Negative (Negative); Non Pathogenic Casts 0-2; Protein Urine Negative (Negative); RBC Urine 0-2 /hpf (0-2); Specific Grav Ur 1.005 (1.001-1.035); Squamous Epithelial Cell Urine None seen /hpf (Few); Urobilinogen Urine 0.2 mg/dL (<2.0); WBC Urine 0-5 /hpf; pH Urine 7.5 (5.0-9.0)
[2023-08-25 11:05] LABS: Urine Cotinine NEGATIVE
[2023-08-25 11:08] LABS: Partial Thromboplastin Time 27.3 SECONDS (22.3-36.8); Prothrombin Time 13.4 Seconds (11.1-14.7)
[2023-08-25 11:11] LABS: Hemoglobin A1C 5.7 % (<5.7)
[2023-08-25 11:30] LABS: Add Urine Microscopic? YES
== END 2023-08-25 09:50 | disposition home or self-care (01) ==
LOC: ANHSURGERY 09:54
PROVIDERS: PCP Family Medicine; Visit Provider Orthopaedic Surgery
DX: M17.11 Unilateral primary osteoarthritis, right knee (principal); Z01.818 Encounter for other preprocedural examination
CPT/HCPCS: 80307; 81001; 83036; 85025; 85610; 85730; 87081

== ENCOUNTER 2023-09-09 16:20 | Observation (INO) | payer BC, SELFPAY ==
[2023-08-25 10:11] VITALS: BMI 33.9
--- NOTE | 2023-08-25 10:12 | PC.NURSE ---
Report to the Outpatient Waiting Room, entrance under the green pavilion located off [facility], at time ___0600____ on date ___09/08/23____. Planned Procedure Time: __0730 . Time changes happen often and if your time is changed the preop area will call you the afternoon before. - You and your visitor will be asked to self-screen and do not enter if you have any COVID symptoms. - A mask is optional within the hospital at this time. Patients may have clear liquids (water, carbonated beverages, clear teas, apple juice) until 3 hours prior to surgery with a maximum of 20 ounces. - No food from midnight until time of surgery - Infants may have breast milk until 4 hours before surgery, formula 6 hours prior to surgery. - Children will be allowed to drink immediately following surgery. If applicable, please bring a bottle or sippy cup to assist with drinking. Juice, water, soda, and popsicles are readily available. For infants on formula, please bring formula the day of surgery. Pacifiers are allowed. Take the following medications with a SIP of water the morning of surgery: ___NONE DO NOT STOP ANY OF YOUR OTHER PRESCRIPTION MEDICATIONS PRIOR TO SURGERY ?EXCEPT THE FOLLOWING Medications to discontinue per physician __ASPIRIN PER DR HOPKINS (NEXT APPT 08/27/23) Please no make-up, nail guyanese, hairspray, perfume, deodorant, or body powder the day of surgery. No jewelry (including any body piercings) or valuables the day of surgery, leave them at home. Please take a shower or bath the night before, or the morning of, surgery with an antibacterial soap. Wear comfortable, loose fitting clothing. Children are encouraged to wear pajamas. - Jewelry must be removed prior to entering the operating room. Rings and piercings that are not removed may be cut off. - The hospital will not accept responsibility for valuables. - Please leave all valuables, including medications, at home the day of surgery. If you are going home after surgery, a licensed motorcycle delivery driver must drive you home. - NO public transportation without another adult if you receive anesthesia. - We recommend that an adult stay with you for 24 hours following discharge. - We also recommend that you do not drive, make important decision, drink alcoholic beverages, or take any drugs that were not prescribed by your health care provider for at least 24 hours after your discharge time. For Pediatric surgeries, we recommend two adults accompany the child home. Follow any additional instructions given to you from your surgeon. If you or anyone in your household have experienced Covid symptoms in the past week, please notify your surgeon or the nurse liaison at the phone number below for possible testing. VERBAL AND WRITTEN instructions given to _PATIENT and asked if any additional questions and then verbalized understanding. Patient advised to call surgeon office or pre surgery nurse liaison [phone] if any additional questions.
[2023-08-25 10:25] VITALS: BP 131/84; PULSE 63; RESP 18; TEMP 36.9; O2SAT 99
[2023-09-08] VITALS (13 sets, daily range): BP systolic 126–164; BP diastolic 52–98; PULSE 69–98; RESP 8–18; TEMP 36.4–36.6; O2SAT 93–100; BMI 33.2
[2023-09-08] MEDS: ACETAMINOPHEN 500 MG TABLET 1000 MG PO (06:39)
--- NOTE | 2023-09-08 06:56 | WPDANESEPPF ---
Anes - Initial Pre Proc Eval Procedure: Operation Date: 09/08/23 07:30 Proposed Procedures p Right Total Knee Arthroplasty - Maurice Estevez MD Date/Time: 09/08/23 06:56 Surgeon: Maurice Estevez MD Pre Op Diagnosis: Rt Knee DJD Patient Data Age: 68 Gender: M Height: 1.65 m Weight: 90.6 kg Last Vital Signs Temp 36.4 C L 09/08/23 06:32 Pulse 69 09/08/23 06:32 Resp 18 09/08/23 06:32 BP 136/69 09/08/23 06:32 Pulse Ox 99 09/08/23 06:32 O2 Del Method Room Air 08/25/23 10:25 Allergies Allergy/AdvReac Type Severity Reaction Status Date / Time sulfamethoxazole Allergy Unknown RASH ARMS, Verified 09/08/23 06:12 UPPER TORSO trimethoprim Allergy Unknown RASH ARMS, Verified 09/08/23 06:12 UPPER TORSO Home Medications Medication Instructions Recorded Confirmed Type aspirin 81 mg tablet,delayed 81 mg PO DAILY 01/11/20 09/08/23 History release hydrochlorothiazide 25 mg tablet 25 mg PO QAM 03/09/23 09/08/23 History rosuvastatin 10 mg tablet 10 mg PO DAILY #90 tabs 07/27/23 09/08/23 Rx acetaminophen 500 mg capsule 500 mg PO Q6H PRN Pain 08/25/23 09/08/23 History chlorhexidine gluconate 4 % 1 applic topical ONCE #237 mL 09/01/23 09/08/23 Rx topical liquid (Hibiclens) Patient hx anesthesia problems: none Family hx anesthesia problems: none Results Review: All pre-operative results and documents have been reviewed as part of the pre-operative evaluation. [facility] Past Medical History Medical History Bilateral foot pain Carotid artery disease without cerebral infarction Carotid occlusion, right Degenerative arthritis of left knee DJD (degenerative joint disease) of knee Essential hypertension History of smoking 25-50 pack years Hyperlipidemia LDL goal <100 Knee pain, left Localized swelling of both lower legs Peripheral artery disease Peripheral artery insufficiency Right knee pain Surgical History Surgical History S/P total knee arthroplasty Left TKA 03/23/23 Family History Family History Other Family history of malignant neoplasm Hypertension Social History Social History Smoking packs per day: 1 Smoking cigarettes per day: 20.0 Years smoked: 30 Smoking pack-years: 30.00 Smoking status: Former smoker Tobacco type: cigarettes Second hand tobacco smoke exposure: Yes Smoking end date: 11/22/04 Additional smoking assessment comments: DENIES ANY FORM OF TOBACCO USE Alcohol intake: former Substance use: never Substance use type: does not use Lack of Transportation: No Lack of Food: Never True Current Housing: I Have Housing Concerned About Future Housing: No Difficulty Paying Gas/Electric Bills: No Difficulty Paying for Meds: No Currently Unemployed: No Education: High School Diploma/GED Difficulty w/ Childcare or Family Care: No Living arrangements: with family Additional living arrangements comments: Occupation/Education: occupation Gender identity (if verbalized by the patient): Male Sexual Orientation (if Verbalized by the Patient): Straight or Heterosexual Spiritual care concerns: No Anes - Eval Final PreProcedure Day of Procedure 09/08/23 06:56 Patient weight: obese Heart: regular rate and rhythm Lungs: clear to auscultation Airway: Mallampati scale class II Neurological: alert and oriented Last oral intake: >/= 8 hours ASA classification: III Emergent: no Anesthetic plan: proceed Anesthesia type and monitoring: general LMA and standard monitoring Results Review: All pre-operative results and documents have been reviewed as part of the pre-operative evaluation. Informed Consent: The patient's anesthetic plan and its attendant risks and benefits were discussed with sly
[2023-09-08] MEDS: LACTATED RINGERS 1,000 ML 30 ML IV CONT ×2 (06:57→10:12)
--- NOTE | 2023-09-08 07:28 | WPDHPUPDATE1 ---
History and Physical Update Update Date/Time: 09/08/23 07:28 History and Physical has been reviewed, including an updated exam of the patient. There are NO changes in the patient's condition. Risks, benefits, and alternatives have been discussed and questions answered. Patient agrees to proceed with procedure.
--- NOTE | 2023-09-08 07:40 | WPDANESPNB ---
Anes - Peripheral Nerve Block Date/Time: 09/08/23 07:40 I have discussed with the patient/family/POA the placement of a peripheral nerve block for post-operative pain management, including associated risks, benefits, complications, and side effects. Alternative methods of post-operative analgesia were detailed. Questions were solicited and answers provided to the satisfaction of the patient/family/POA. Time-Out: A pre-procedural Time-Out was completed immediately before starting the procedure and confirmed: Patient Identification, Site, Procedure, Patient Position and the Availability of Requisite Equipment. Clinical Indications: Acute post-operative pain management requested by the operative surgeon. Nerve Block Insertion Note Anes-nerve block: femoral right Patient position: supine Skin prep: chlorhexidine Needle: 22 gauge, stimulating, insulated echogenic needle. Needle length: 50 mm Technique: nerve stimulation lost at (mA) (0.3) Injectate: bupivacaine 0.5% with epi 5 mcg/ml (30cc no epi) and dexamethasone (mg) (8) Complications: none Procedure start time:: 734 Procedure end time:: 739
[2023-09-08] MEDS: ceFAZolin 2 GM/D5W 50 ML 2 GM/50 ML BAG IVPB ×3 (07:43→21:44)
[2023-09-08] MEDS: TRANEXAMIC ACID 1,000MG/ISO100 1,000 MG/100 ML BAG 200 MG IVPB (07:43)
[2023-09-08] MEDS: TRANEXAMIC ACID 1,000 MG/10 ML AMPUL 1000 MG IV PUSH (09:14)
[2023-09-08] MEDS: GENTAMICIN BONE CEMENT REFOBACIN 1 EACH TOPICAL (09:21)
--- NOTE | 2023-09-08 10:14 | W.PM.PROC2 ---
Procedure Note - Detailed Date of Procedure 09/08/23 Pre-op Diagnosis Rt Knee DJD Post-op Diagnosis Same Procedure Performed R TKA Surgeon Maurice Estevez MD Anesthesia General Description of Procedure THE RIGHT KNEE WAS PREPPED AND DRAPED IN THE STERILE FASHION. A MIDLINE SKIN INCISION WAS MADE. A MEDIAL PARAPATELLAR ARTHROTOMY WAS MADE. THE PATELLA WAS EVERTED. THERE WAS TRICOMPARTMENT DJD. THE TOURNIQUET WAS DEFLATED AFTER 5 MIN FROM TIME OF INFLATION. AN INTRAMEDULLARY SARAHY WAS PLACED IN THE FEMUR. A DISTAL FEMORAL CUT WAS MADE IN 5 DEGREES OF VALGUS REMOVING APPROXIMATELY 9 MM OF BONE FROM THE DISTAL FEMUR. THE FEMUR WAS SIZED TO 70. A FEMORAL CUTTING BLOCK WAS PLACED IN 3 DEGREES OF EXTERNAL ROTATION AND IN ALIGNMENT WITH DEEPAK'S LINE AND THE TRANSEPICONDYLAR AXIS. ANTERIOR POSTERIOR AND CHAMFER CUTS WERE MADE. THE CUTS WERE EXCELLENT. NEXT AN INTRAMEDULLARY CUTTING GUIDE WAS PLACED IN THE TIBIA. A TRANS TIBIAL CUT WAS MADE ALONG THE LONG AXIS OF THE TIBIA. APPROXIMATELY 10 MM OF BONE WAS REMOVED FROM THE HIGH SIDE OF THE TIBIA. THE TIBIA WAS THEN PLANED TO A SMOOTH SURFACE. POSTERIOR FEMORAL OSTEOPHYTES WERE REMOVED FROM THE FEMORAL CONDYLES. A 75 TIBIAL TRIAL WAS PLACED IN ALIGNMENT WITH THE 1/3 MEDIAL ASPECT OF THE TIBIAL TUBERCLE. THEN A 70 FEMORAL TRIAL COMPONENT WAS PLACED. BOTH HAD EXCELLENT FITS. EVENTUALLY A 12MM CR POLYETHYLENE TRIAL COMPONENT WAS PLACED. THE KNEE WAS TAKEN THROUGH A RANGE OF MOTION. THE KNEE CAME OUT TO FULL EXTENSION. THERE WAS NO ABNORMAL TILT TO THE PATELLA. THERE WAS GOOD A/P AND VARUS/VALGUS STABILITY. THERE WAS NO EXCESSIVE ROLL BACK WITH FLEXION. THE TRIAL COMPONENTS WERE REMOVED. THE TOURNIQUET WAS INFLATED AGAIN. THEN A 70 FEMORAL COMPONENT AND 75 TIBIAL COMPONENT WITH A 12 CR POLYETHYLENE COMPONENT WERE CEMENTED INTO PLACE. ONCE THE CEMENT WAS HARD THE KNEE WAS TAKEN THROUGH A ROM AGAIN AND FOUND TO BE STABLE WITH NO PATELLA TILT NO EXCESSIVE ROLL BACK WITH FLEXION AND GOOD STABILITY WITH COMPLETE AND FULL EXTENSION. THE TOURNIQUET WAS DEFLATED AGAIN AFTER 17 MIN. THE KNEE WAS IRRIGATED WITH STERILE BETADINE AND WATER FOR ABOUT 3 MINUTES. THE BLEEDERS WERE CAUTERIZED. THE ARTHROTOMY WAS REPAIRED WITH NUMBER 1 VICRYL. THE SUB CUTANEOUS LAYER WITH 2-0 VICRYL AND THE SKIN WITH TOM. THE WOUND WAS WASHED AND A STERILE DRESSING WAS APPLIED. PATIENT WAS EXTUBATED. Estimated Blood Loss 100 Pathology None sent Complications No immediate complications Condition Stable Disposition PACU
[2023-09-08] MEDS: fentaNYL CITRATE INJ (*CRX) 100 MCG/2 ML VIAL 25 MCG IV PUSH ×4 (10:27→10:47)
--- NOTE | 2023-09-08 11:33 | ADMGEN ---
This patient, Dino Augustine, was admitted to 2 Medical Room 240-01. Patient/family oriented to hospital policies and general routines including ID bracelet, bed and alarms, visiting hours, pain management, procedures, bathroom and other care routines, personal items, smoking policy, room service/diet, and visiting hours. Information on how to activate the Rapid Response Team has been discussed. Patient/Family are encouraged to report perceived risks to care and to ask questions if they do not understand what they are told or what they should do.
[2023-09-08] MEDS: KETOROLAC 15 MG/ML VIAL (*BKC) IV PUSH ×2 (12:15→17:31)
[2023-09-08] MEDS: SENNA/DOCUSATE SODIUM TABLET 2 TAB PO (17:30)
[2023-09-08] MEDS: ASPIRIN 325 MG ENTERIC TABLET PO (21:39)
[2023-09-08] MEDS: FAMOTIDINE 20 MG TABLET PO (21:39)
--- NOTE | ~2023-09-09 | XR_ITS ---
EXAMINATION: [id number] DATE: 09/08/2023 10:27 INDICATION: Postoperative evaluation following right total knee arthroplasty. TECHNIQUE: Anteroposterior and lateral views of the right knee were obtained. COMPARISON: None. FINDINGS: Right total knee arthroplasty without patellar resurfacing appears well seated and in near anatomic a lignment. No fractures identified. Skin chris anterior to the right knee and expected postoperativ e subcutaneous, intramedullary and intra-articular gas. Atherosclerotic calcification along the arter ies of the distal thigh and proximal calf. IMPRESSION: 1. Right total knee arthroplasty, negative for postoperative purposes. Reviewed, dictated and finalized at location A.
[2023-09-09] MEDS: KETOROLAC 15 MG/ML VIAL (*BKC) IV PUSH ×3 (00:15→12:47)
[2023-09-09 01:55] VITALS: BP 126/55; PULSE 76; RESP 18; TEMP 36.2; O2SAT 96
[2023-09-09 05:12] LABS: Basophils Percent Auto 0.2 % (0.2-1.2); Hematocrit 36.5 % (42.0-52.0); Immature Granulocyte Absolute 0.14 K/mm3 (0.00-0.031); Immature Granulocyte Percent A 0.6 % (0-0.5); Lymphocytes Absolute Auto 1.32 K/mm3 (0.9-3.2); Lymphocytes Percent Auto 5.7 % (18.3-44.2); Mean Corpuscular HGB Conc 32.9 g/dl (32-36); Mean Corpuscular Volume 94.3 fl (80-100); Mean Platelet Volume 11.3 fl (7.4-10.4); Monocytes Percent Auto 8.7 % (2.6-8.5); Neutrophils Absolute Auto 19.8 K/mm3 (1.3-6.7); Neutrophils Percent Auto 84.8 % (45.5-73.1); Platelet Count Result 162 k/mm3 (150-375); Red Blood Count 3.87 M/mm3 (4.6-6.20); Red Cell Distribution Width 13.2 % (11.5-14.5); White Blood Count 23.3 K/mm3 (4.5-10.0)
[2023-09-09 05:25] LABS: Anion Gap 6 mmol/L (8-16); Blood Urea Nitrogen 22 mg/dL (9-20); Calcium 8.6 mg/dL (8.4-10.2); Carbon Dioxide 24 mmol/L (22-30); Chloride 103 mmol/L (98-107); Estimated CRCL calculation 72 ml/min; Estimated Glomerular Filt Rate > 60; Glucose 137 mg/dL (65-110); Potassium 4.2 mmol/L (3.4-5.0); Sodium 133 mmol/L (137-145)
[2023-09-09 05:55] VITALS: BP 140/71; PULSE 70; RESP 18; TEMP 36.7; O2SAT 95
[2023-09-09] MEDS: ceFAZolin 2 GM/D5W 50 ML 2 GM/50 ML BAG IVPB (06:16)
--- NOTE | 2023-09-09 09:18 | PM.PNORT ---
Progress Note: A&P Assessment and Plan (1) S/P total knee arthroplasty: Qualifiers: Laterality: right Qualified Code(s): Z96.651 - Presence of right artificial knee joint Code(s): Z96.659 - Presence of unspecified artificial knee joint Status: Acute Assessment and Plan: POD #1 : Righ TKA Continue PT/OT. WBAT. Walker. HIGH FALL RISK. Continue pain control. Ice Knee. Protect skin. DVT prophylaxis with Aspirin. SCDs. Incentive Spirometry Use reviewed. Monitor Dressing. Change prior to discharge. Bowel Regimen. Dispo: Home with Home Health pending progress with PT/OT Plan Reviewed postoperative course, labs and vitals with attending MD, Dr. Estevez. Agrees with current plan as indicated above. Subjective Subjective Date/Time Seen: 09/09/23 09:18 Post Op day: 1 Interval history: POD #1: Right TKA Patient doing well. Pain well controlled. Femoral Block still in effect, causing difficulty with PT. Otherwise, no complaints. Review of Systems Review of Systems: All systems reviewed & are unremarkable except as noted in HPI and below Constitutional: Constitutional: Denies fever(s) and Denies headache(s) ENT: Denies headache(s) Cardiovascular: Cardiovascular: Denies chest pain, Denies diaphoresis, Denies palpitations and Denies dyspnea Respiratory: Respiratory: Denies dyspnea Gastrointestinal: Gastrointestinal: Denies abdominal pain, Denies constipation, Denies nausea and Denies vomiting Genitourinary: Genitourinary: Denies dysuria and Reports nocturia Musculoskeletal: Musculoskeletal: Reports arthralgias (Right Knee ) and Reports joint swelling (Right Knee ) Neurologic: Denies headache(s) Endocrine: Endocrine: Denies palpitations Exam Const: General: comfortable and no acute distress Resp: Effort & Inspection: normal respiratory effort Cardio: Rate: regular rate Rhythm: regular rhythm GI: GI Palp: Yes Soft to palpation, No Tenderness to palpation present (GI) and No Guarding due to palpation present (GI) Skin: General skin exam: wounds noted Wounds: wounds noted Other: Incision c/d/i. No surrounding redness/warmth. No hematoma. Mild ecchymosis. No wound dehiscence Neuro: Cognition (Neuro): normal cognition Other: NV intact aside from block. Moves toes. Sensation intact to light touch. +ankle dorsiflexion/plantarflexion. Extrem: Right lower extremity: normal to inspection, knee Details: tenderness (diffuse, mild ) Location: of the patella, swelling (diffuse, consistent with surgical intervention ), abnormal ROM Details: pain with active ROM during, pain with passive ROM during and with range as follows (limited due to recent surgical intervention ); able to extend lower leg actively and ecchymosis (mild ), lower leg (Negative Suresh's Sign ) Details: normal to inspection; no erythema and no tenderness, ankle (+ankle dorsiflexion/plantarflexion ) Details: normal to inspection, no edema and normal ROM; no tenderness, no swelling and no ecchymosis and foot Details: normal capillary refill, normal to inspection, vascular exam Details: dorsalis pedis pulse present and motor-sensory exam Details: light-touch normal; no tenderness Left lower extremity: normal to inspection Psych: Mental Status: mental status grossly normal Objective Data Vital Signs Vital Signs: Vital Signs - 24 hr 09/08/23 10:12 09/08/23 10:15 09/08/23 10:30 Temperature 36.6 C Pulse Rate 98 92 91 Respiratory Rate 8 L 13 13 Blood Pressure 164/98 H 155/95 H 139/84 Pulse Oximetry 98 100 98 Oxygen Delivery Simple Face Mask Simple Face Mask Room Air Oxygen Flow Rate 10 10 09/08/23 10:45 09/08/23 11:00 09/08/23 11:15 Temperature Pulse Rate 93 94 95 Respiratory Rate 15 13 16 Blood Pressure 142/86 H 157/69 H 139/63 Pulse Oximetry 97 95 99 Oxygen Delivery Room Air Room Air Room Air Oxygen Flow Rate 09/08/23 11:30 09/08/23 11:45 09/08/23 12:24 Temperature 36.4 C L
[2023-09-09 09:45] VITALS: O2SAT 98
[2023-09-09 10:00] VITALS: BP 142/70; PULSE 69; RESP 18; TEMP 36.6; O2SAT 96
[2023-09-09] MEDS: FAMOTIDINE 20 MG TABLET PO ×2 (10:26→21:58)
[2023-09-09] MEDS: hydroCHLOROthiazide 25 MG TABLET PO (10:26)
[2023-09-09] MEDS: polyethylene glycoL 3350 17 GM POWD.PACK PO (10:26)
[2023-09-09] MEDS: ROSUVASTATIN 10 MG TABLET PO (10:26)
[2023-09-09] MEDS: SENNA/DOCUSATE SODIUM TABLET 2 TAB PO ×2 (10:26→17:16)
[2023-09-09] MEDS: ASPIRIN 325 MG ENTERIC TABLET PO ×2 (10:26→21:58)
--- NOTE | 2023-09-09 13:16 | WPDANESPN ---
Anes - Prog Note Post-Op Date/Time: 09/09/23 13:16 Vital Signs: Last Vital Signs Temp 36.6 C 09/09/23 10:00 Pulse 69 09/09/23 10:00 Resp 18 09/09/23 10:00 BP 142/70 H 09/09/23 10:00 Pulse Ox 96 09/09/23 10:00 O2 Del Method Room Air 09/09/23 10:28 O2 Flow Rate 10 09/08/23 10:15 Pain Score (VAS): 0 I/O: Intake & Output 09/08/23 09/09/23 09/09/23 23:59 07:59 15:59 Intake Total 622 800 240 Output Total 300 1200 Balance 322 -400 240 Laboratory Tests 09/09/23 05:04 09/09/23 05:04 09/09/23 05:04 WBC 23.3 H RBC 3.87 L Hgb 12.0 L Hct 36.5 L MCV 94.3 MCH 31.0 MCHC 32.9 RDW 13.2 Plt Count 162 MPV 11.3 H Immature Gran % (Auto) 0.6 H Neut % (Auto) 84.8 H Lymph % (Auto) 5.7 L [place] % (Auto) 8.7 H Eos % (Auto) 0.0 Baso % (Auto) 0.2 Lymph # (Auto) 1.32 [place] # (Auto) 2.0 H Eos # (Auto) 0.0 Baso # (Auto) 0.0 Abs Immat Gran (auto) 0.14 H Absolute Neuts (auto) 19.8 H Absolute Nucleated RBC 0.0 Nucleated RBC % 0.0 Sodium 133 L Potassium 4.2 Chloride 103 Carbon Dioxide 24 Anion Gap 6 L BUN 22 H Creatinine 0.90 Estim Creat Clear Calc 72 Estimated GFR > 60 Glucose 137 H Calcium 8.6 Patient Feedback: Patient satisfied with anesthetic care.
[2023-09-09 14:00] VITALS: BP 132/62; PULSE 66; RESP 18; TEMP 36.8; O2SAT 97
[2023-09-09 20:09] VITALS: BP 142/74; PULSE 67; RESP 20; TEMP 36.4; O2SAT 99
[2023-09-10 03:34] VITALS: BP 117/72; PULSE 74; RESP 20; TEMP 36.6; O2SAT 100
[2023-09-10] MEDS: ACETAMINOPHEN 500 MG TABLET 1000 MG PO (06:18)
--- NOTE | 2023-09-10 09:04 | PM.PNORT ---
Progress Note: A&P Assessment and Plan (1) S/P total knee arthroplasty: Qualifiers: Laterality: right Qualified Code(s): Z96.651 - Presence of right artificial knee joint Code(s): Z96.659 - Presence of unspecified artificial knee joint Status: Acute Assessment and Plan: POD #2: Right TKA Continue PT/OT. WBAT. Walker. HIGH FALL RISK. Continue pain control. Ice Knee. Protect skin. DVT prophylaxis with Aspirin. SCDs. Incentive Spirometry Use reviewed. Monitor Dressing. Change prior to discharge. Bowel Regimen. Dispo: Home with Home Health Plan Reviewed postoperative course, labs and vitals with attending MD, Dr. Estevez. Agrees with current plan as indicated above. Subjective Subjective Date/Time Seen: 09/10/23 09:04 Post Op day: 2 Interval history: POD #2: Right TKA Improvement today. Block no longer inhibiting PT/OT. Pain increased but well controlled. No new concerns. Hopeful for discharge this morning. Review of Systems Review of Systems: All systems reviewed & are unremarkable except as noted in HPI and below Constitutional: Constitutional: Denies fever(s) and Denies headache(s) ENT: Denies headache(s) Cardiovascular: Cardiovascular: Denies chest pain, Denies diaphoresis, Denies palpitations and Denies dyspnea Respiratory: Respiratory: Denies dyspnea Gastrointestinal: Gastrointestinal: Denies abdominal pain, Denies constipation, Denies nausea and Denies vomiting Genitourinary: Genitourinary: Denies dysuria and Reports nocturia Musculoskeletal: Musculoskeletal: Reports arthralgias (Right Knee ) and Reports joint swelling (Right Knee ) Neurologic: Denies headache(s) Endocrine: Endocrine: Denies palpitations Exam Const: General: comfortable and no acute distress Resp: Effort & Inspection: normal respiratory effort Cardio: Rate: regular rate Rhythm: regular rhythm GI: GI Palp: Yes Soft to palpation, No Tenderness to palpation present (GI) and No Guarding due to palpation present (GI) Skin: General skin exam: wounds noted Wounds: wounds noted Other: Incision c/d/i. No surrounding redness/warmth. No hematoma. Mild ecchymosis. No wound dehiscence Neuro: Cognition (Neuro): normal cognition Other: NV intact. Moves toes. Sensation intact to light touch. +ankle dorsiflexion/plantarflexion. Extrem: Right lower extremity: normal to inspection, knee Details: tenderness (diffuse, mild ) Location: of the patella, swelling (diffuse, consistent with surgical intervention ), abnormal ROM Details: pain with active ROM during, pain with passive ROM during and with range as follows (limited due to recent surgical intervention ); able to extend lower leg actively and ecchymosis (mild ), lower leg (Negative Suresh's Sign ) Details: normal to inspection; no erythema and no tenderness, ankle (+ankle dorsiflexion/plantarflexion ) Details: normal to inspection, no edema and normal ROM; no tenderness, no swelling and no ecchymosis and foot Details: normal capillary refill, normal to inspection, vascular exam Details: dorsalis pedis pulse present and motor-sensory exam Details: light-touch normal; no tenderness Left lower extremity: normal to inspection Psych: Mental Status: mental status grossly normal Objective Data Vital Signs Vital Signs: Vital Signs - 24 hr 09/09/23 09:45 09/09/23 10:00 09/09/23 10:28 Temperature 36.6 C Pulse Rate 69 Respiratory Rate 18 Blood Pressure 142/70 H Pulse Oximetry 98 96 Oxygen Delivery Room Air Room Air 09/09/23 14:00 09/09/23 20:09 09/09/23 21:52 Temperature 36.8 C 36.4 C L Pulse Rate 66 67 Respiratory Rate 18 20 Blood Pressure 132/62 142/74 H Pulse Oximetry 97 99 Oxygen Delivery Room Air 09/10/23 03:34 Temperature 36.6 C Pulse Rate 74 Respiratory Rate 20 Blood Pressure 117/72 Pulse Oximetry 100 Oxygen Delivery Intake/Output Intake/Output: Intake & Output 09/07/23 09/08/23
--- NOTE | 2023-09-10 09:14 | PM.DS ---
DS: Admitting Diagnosis Discharge Date 09/10/2023 Admitting Diagnosis Right Knee DJD DS: Discharge Diagnosis Discharge Diagnosis (1) S/P total knee arthroplasty: Qualifiers: Laterality: right Qualified Code(s): Z96.651 - Presence of right artificial knee joint Code(s): Z96.659 - Presence of unspecified artificial knee joint Status: Acute Assessment and Plan: POD #2: Right TKA Continue PT/OT. WBAT. Walker. HIGH FALL RISK. Continue pain control. Ice Knee. Protect skin. DVT prophylaxis with Aspirin. SCDs. Incentive Spirometry Use reviewed. Monitor Dressing. Change prior to discharge. Bowel Regimen. Dispo: Home with Home Health Plan Reviewed postoperative course, labs and vitals with attending MD, Dr. Estevez. Agrees with current plan as indicated above. DS: Summary Hospital Course Reason for hospitalization: Right TKA Hospital Course: 68 year old male admitted s/p Right TKA for postoperative medical management, pain control and mobilization with PT/OT. Patient progressed well with PT/OT. Pain and vitals remained stable throughout. The patient has been cleared to be discharged home with home health at this time. All discharge care instructions reviewed at depth. New medications reviewed. Follow up planned for 3 weeks in the outpatient orthopedic clinic with Dr. Estevez. Status at Discharge Functional status at discharge: uses cane/walker Overall status at discharge: patient is progressing back to baseline Time Spent with Patient Time attestation: Total time spent providing and/or coordinating discharge services: Exam Const: General: comfortable and no acute distress Resp: Effort & Inspection: normal respiratory effort Cardio: Rate: regular rate Rhythm: regular rhythm Skin: General skin exam: wounds noted Wounds: wounds noted Other: Incision c/d/i. No surrounding redness/warmth. No hematoma. Mild ecchymosis. No wound dehiscence Neuro: Cognition (Neuro): normal cognition Other: NV intact. Moves toes. Sensation intact to light touch. +ankle dorsiflexion/plantarflexion. Extrem: Right lower extremity: normal to inspection, knee Details: tenderness (diffuse, mild ) Location: of the patella, swelling (diffuse, consistent with surgical intervention ), abnormal ROM Details: pain with active ROM during, pain with passive ROM during and with range as follows (limited due to recent surgical intervention ); able to extend lower leg actively and ecchymosis (mild ), lower leg (Negative Suresh's Sign ) Details: normal to inspection; no erythema and no tenderness, ankle (+ankle dorsiflexion/plantarflexion ) Details: normal to inspection, no edema and normal ROM; no tenderness, no swelling and no ecchymosis and foot Details: normal capillary refill, normal to inspection, vascular exam Details: dorsalis pedis pulse present and motor-sensory exam Details: light-touch normal; no tenderness Left lower extremity: normal to inspection Psych: Mental Status: mental status grossly normal Discharge Plan Discharge Attending physician on discharge: Maurice Estevez Discharging Clinician: Ayana Linder Patient Disposition: Home Health Service Activity: may shower, no driving and follow weight bearing status Diet: as tolerated Wound Care Instructions: follow printed instructions Discharge Instructions: Post Op Total Knee Replacement Instructions Dr. Maurice Estevez [phone] Your dressing will be changed prior to your discharge. You will be sent home with one additional dressing to be changed on post op day 7 by the home health RN. Your chris will be removed on the 14th day after surgery and steri-strips will be placed. Please practice good hand hygiene and do not touch your incision in order to prevent infection. You may shower with your dressing but do not submerge in a bath tub. Do not drive or operate machinery until you are released by Dr. Estevez. Do not walk
[2023-09-10] MEDS: ASPIRIN 325 MG ENTERIC TABLET PO (09:25)
[2023-09-10] MEDS: FAMOTIDINE 20 MG TABLET PO (09:25)
[2023-09-10] MEDS: ROSUVASTATIN 10 MG TABLET PO (09:25)
[2023-09-10] MEDS: SENNA/DOCUSATE SODIUM TABLET 2 TAB PO (09:25)
[2023-09-10] MEDS: hydroCHLOROthiazide 25 MG TABLET PO (09:25)
[2023-09-10 10:43] VITALS: O2SAT 99
== END 2023-09-10 11:50 | disposition home health service (06) ==
LOC: ANHSURGERY 16:32 → ANH2MED 16:32
PROVIDERS: Admitting Provider Orthopaedic Surgery; PCP Family Medicine; Visit Provider Orthopaedic Surgery
PROC: (CPT 27447; principal; 2023-09-08 07:30)
DX: M17.11 Unilateral primary osteoarthritis, right knee (principal); I10 Essential (primary) hypertension; E78.5 Hyperlipidemia, unspecified; I73.9 Peripheral vascular disease, unspecified; Z87.891 Personal history of nicotine dependence; Z79.82 Long term (current) use of aspirin; Z79.1 Long term (current) use of non-steroidal anti-inflammatories (NSAID); Z79.899 Other long term (current) drug therapy
CPT/HCPCS: 27447; 64447; 36415; 73560; 80048; 85025; 86850; 86900; 86901; 97110; 97116; 97161; 97165; 97530; 97535; A9270; C1713; C1776; G0378; J0171; J0690; J1100; J1170; J1885; J2250; J2270; J2371; J2405; J2704; J2795; J3010; J3370; J7120

== ENCOUNTER 2023-10-13 03:35 | Day surgery (SDC) | payer BC, SELFPAY ==
[2023-09-28 14:16] VITALS: BMI 32.3
--- NOTE | 2023-10-11 08:53 | SUR.PREOP ---
Patient called regarding upcoming procedure. Reviewed preop instructions, appointment times, and procedure prep.
[2023-10-13 06:46] VITALS: BP 135/78; PULSE 82; RESP 18; TEMP 36.5; O2SAT 99; BMI 31.4
[2023-10-13] MEDS: LACTATED RINGERS 1,000 ML 150 ML IV CONT (06:59)
--- NOTE | 2023-10-13 07:15 | WPDANESEPPF ---
Anes - Initial Pre Proc Eval Procedure: Operation Date: 10/13/23 08:00 Proposed Procedures p Colonoscopy - Barry Cates MD Date/Time: 10/13/23 07:15 Surgeon: Barry Cates MD Pre Op Diagnosis: other fecal abnormalities Patient Data Age: 68 Gender: M Height: 1.68 m Weight: 88.4 kg Last Vital Signs Temp 36.5 C 10/13/23 06:46 Pulse 82 10/13/23 06:46 Resp 18 10/13/23 06:46 BP 135/78 10/13/23 06:46 Pulse Ox 99 10/13/23 06:46 O2 Del Method Room Air 10/13/23 06:46 Allergies Allergy/AdvReac Type Severity Reaction Status Date / Time sulfamethoxazole Allergy Unknown RASH ARMS, Verified 10/13/23 06:45 UPPER TORSO trimethoprim Allergy Unknown RASH ARMS, Verified 10/13/23 06:45 UPPER TORSO Home Medications Medication Instructions Recorded Confirmed Type aspirin 81 mg tablet,delayed 81 mg PO DAILY 01/11/20 10/13/23 History release hydrochlorothiazide 25 mg tablet 25 mg PO QAM 03/09/23 10/13/23 History rosuvastatin 10 mg tablet 10 mg PO DAILY #90 tabs 07/27/23 10/13/23 Rx acetaminophen 500 mg capsule 500 mg PO Q6H PRN Pain 08/25/23 10/13/23 History oxycodone-acetaminophen 5 mg-325 1 - 2 tablet PO Q4-6H PRN pain #50 09/09/23 10/13/23 Rx mg tablet tabs Patient hx anesthesia problems: none Family hx anesthesia problems: none Results Review: All pre-operative results and documents have been reviewed as part of the pre-operative evaluation. [facility] Past Medical History Medical History Bilateral foot pain Carotid artery disease without cerebral infarction Carotid occlusion, right Degenerative arthritis of left knee DJD (degenerative joint disease) of knee Essential hypertension History of smoking 25-50 pack years Hyperlipidemia LDL goal <100 Knee pain, left Localized swelling of both lower legs Peripheral artery disease Peripheral artery insufficiency Right knee pain Surgical History Surgical History S/P total knee arthroplasty Left TKA 03/23/23 S/P total knee arthroplasty Right TKA 09/08/23 Family History Family History Other Family history of malignant neoplasm Hypertension Social History Social History Smoking packs per day: 1 Smoking cigarettes per day: 20.0 Years smoked: 30 Smoking pack-years: 30.00 Smoking status: Former smoker Tobacco type: cigarettes Second hand tobacco smoke exposure: Yes Smoking end date: 11/22/04 Additional smoking assessment comments: DENIES ANY FORM OF TOBACCO USE Alcohol intake: current Drinks per week: 1 Alcohol use details: occasionally Substance use: never Substance use type: does not use Lack of Transportation: No Lack of Food: Never True Current Housing: I Have Housing Concerned About Future Housing: No Difficulty Paying Gas/Electric Bills: No Difficulty Paying for Meds: No Currently Unemployed: No Education: Trade/Vocational Certificate Difficulty w/ Childcare or Family Care: No Living arrangements: with family Additional living arrangements comments: Occupation/Education: occupation Gender identity (if verbalized by the patient): Male Sexual Orientation (if Verbalized by the Patient): Straight or Heterosexual Spiritual care concerns: No Anes - Eval Final PreProcedure Day of Procedure 10/13/23 07:15 Patient weight: obese Heart: regular rate and rhythm Lungs: clear to auscultation Airway: Mallampati scale class II Neurological: alert and oriented Last oral intake: >/= 8 hours ASA classification: III Emergent: no Anesthetic plan: proceed Anesthesia type and monitoring: general GIVS and standard monitoring Results Review: All pre-operative results and documents have been reviewed as part of the pre-operat
--- NOTE | 2023-10-13 07:51 | PM.HPGS ---
History of Present Illness History of Present Illness Consent: Risks, benefits, and alternatives have been discussed and questions answered. Patient agrees to proceed with procedure. Chief complaint: other fecal abnormalities Narrative: Dino Augustine is a 68 year old male here for first screening colonoscopy Review of Systems Constitutional: Constitutional: Denies headache(s) and Denies weakness Eyes: Eyes: Denies blurry vision ENT: Reports Normal hearing present, Denies headache(s) and Denies neck pain Cardiovascular: Cardiovascular: Denies chest pain and Denies dyspnea Respiratory: Respiratory: Denies dyspnea Gastrointestinal: Gastrointestinal: Reports no additional gastrointestinal complaints Genitourinary: Genitourinary: Denies dysuria Musculoskeletal: Musculoskeletal: Denies neck pain Integumentary/Breasts: Skin/Breast: Denies dry skin Neurologic: Reports Normal hearing present, Denies headache(s) and Denies weakness Psychiatric: Psychiatric: Denies anxiety Endocrine: Endocrine: Denies change in body appearance Hematologic/Lymphatic: Hematologic/Lymphatic: Denies easy bleeding Allergic/Immunologic: Allergic/Immunologic: Denies urticaria [facility] Past Medical History Medical History (Updated 10/13/23 @ 07:51 by Barry Cates MD) Bilateral foot pain Carotid artery disease without cerebral infarction Carotid occlusion, right Colon cancer screening Degenerative arthritis of left knee DJD (degenerative joint disease) of knee Essential hypertension History of smoking 25-50 pack years Hyperlipidemia LDL goal <100 Knee pain, left Localized swelling of both lower legs Peripheral artery disease Peripheral artery insufficiency Right knee pain Surgical History Surgical History S/P total knee arthroplasty Left TKA 03/23/23 S/P total knee arthroplasty Right TKA 09/08/23 Family History Family History Other Family history of malignant neoplasm Hypertension Social History Social History Smoking packs per day: 1 Smoking cigarettes per day: 20.0 Years smoked: 30 Smoking pack-years: 30.00 Smoking status: Former smoker Tobacco type: cigarettes Second hand tobacco smoke exposure: Yes Smoking end date: 11/22/04 Additional smoking assessment comments: DENIES ANY FORM OF TOBACCO USE Alcohol intake: current Drinks per week: 1 Alcohol use details: occasionally Substance use: never Substance use type: does not use Lack of Transportation: No Lack of Food: Never True Current Housing: I Have Housing Concerned About Future Housing: No Difficulty Paying Gas/Electric Bills: No Difficulty Paying for Meds: No Currently Unemployed: No Education: Trade/Vocational Certificate Difficulty w/ Childcare or Family Care: No Living arrangements: with family Additional living arrangements comments: Occupation/Education: occupation Gender identity (if verbalized by the patient): Male Sexual Orientation (if Verbalized by the Patient): Straight or Heterosexual Spiritual care concerns: No Meds Home Medications and Allergies Home Medications Medication Instructions Recorded Confirmed Type aspirin 81 mg tablet,delayed 81 mg PO DAILY 01/11/20 10/13/23 History release hydrochlorothiazide 25 mg tablet 25 mg PO QAM 03/09/23 10/13/23 History rosuvastatin 10 mg tablet 10 mg PO DAILY #90 tabs 07/27/23 10/13/23 Rx acetaminophen 500 mg capsule 500 mg PO Q6H PRN Pain 08/25/23 10/13/23 History oxycodone-acetaminophen 5 mg-325 1 - 2 tablet PO Q4-6H PRN pain #50 09/09/23 10/13/23 Rx mg tablet tabs Allergies Allergy/AdvReac Type Severity Reaction Status Date / Time sulfamethoxazole Allergy Unknown RASH ARMS, Verified 10/13/23 06:45 UPPER TORSO trimethoprim Allergy Unknown RASH ARMS,
[2023-10-13 08:14] VITALS: BP 111/68; PULSE 79; RESP 16; O2SAT 97
[2023-10-13 08:24] VITALS: BP 117/73; PULSE 77; RESP 12; O2SAT 98
[2023-10-13 08:25] VITALS: BP 121/73; PULSE 80; RESP 12; O2SAT 99
== END 2023-10-13 08:39 | disposition home or self-care (01) ==
PROVIDERS: PCP Family Medicine; Visit Provider Internal Medicine Gastroenterology
PROC: 0DJD8ZZ Inspection of Lower Intestinal Tract, Via Natural or Artificial Opening Endoscopic (ICD-10-PCS; CPT 45378; principal; 2023-10-13 08:00)
DX: Z12.11 Encounter for screening for malignant neoplasm of colon (principal); K64.8 Other hemorrhoids; D12.3 Benign neoplasm of transverse colon; I10 Essential (primary) hypertension; E78.5 Hyperlipidemia, unspecified; I73.9 Peripheral vascular disease, unspecified; Z79.82 Long term (current) use of aspirin; Z79.891 Long term (current) use of opiate analgesic; Z87.891 Personal history of nicotine dependence; Z86.79 Personal history of other diseases of the circulatory system; Z80.9 Family history of malignant neoplasm, unspecified; E66.9 Obesity, unspecified; Z68.31 Body mass index [BMI] 31.0-31.9, adult; K57.30 Diverticulosis of large intestine without perforation or abscess without bleeding
CPT/HCPCS: 45385; 88305; J2704; J7120

== ENCOUNTER 2023-11-11 08:15 | Outpatient (RCR) | payer BC, SELFPAY ==
--- NOTE | 2023-10-20 14:33 | OPREHPOC ---
Outpatient Therapy Plan of Care This is a Multidisciplinary Plan of Care that may contain components documented by all disciplines (PT, OT, and ST.) PT Problem 1 PT Problem #1 Knowledge Deficit PT Goal 1 Goal Pt to be IND with issued HEP. Target Visit 8 PT Problem 2 PT Problem #2 Pain PT Goal 1 Goal Pt to report knee pain no greater than 3/10 in the last week Target Visit 8 PT Goal 2 Goal Pt to report a 80% return to PLOF. PT Problem 3 PT Problem #3 Impaired Range of Motion PT Goal 1 Goal Pt to improve active knee flexion to 120 deg Target Visit 8 PT Problem 4 PT Problem #4 Edema PT Goal 1 Goal Pt to demonstrate no more than 1cm of edmea pina. Target Visit 8 PT Problem 5 PT Problem #5 Impaired Gait PT Goal 1 Goal Pt to ambulate on level ground without an antalgic pattern Target Visit 8 PT Goal 2 Goal Pt to demonstrate a reciprocal pattern during stairs without compensations. Target Visit 8
--- NOTE | 2023-10-20 14:33 | PTOPEVAL1 ---
Assessment and note entered by Antolin Mars, PT, DPT Evaluation Information Assessment Status Evaluation Diagnosis R TKA Onset 09/08/23 Subjective Information Pt had a R TKA on 09/08/23, he states he has his L knee replaced in March. He states this knee has been much harder to recover from. He states his swelling still seems uncontrolled. He states he can walk but suffers later in the evening. 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 Reported Pain Level Pain Score 2: Self Report Assessment PT Clinical Summary Nikita presents to therapy today for his initial evaluation following a R TKA on 09/08/23. Today he demonstrates active motion from -5 - 105 deg on the R compared to -2 - 112 on the L knee. He ambulates with an antalgic pattern and demonstrates compensations during stair climbing. Skilled therapy services are indicate to improve ROM, functional strength, and gait, and to return to PLOF. Plan of Care Interventions Electrical Stimulation,Gait Training,Hot Pack/Cold Pack,Intermittent Compression,Manual Therapy, Neuro Re-education,Patient/Caregiver Educati, Therapeutic Activities,Therapeutic Exercise PT Services Indicated Yes Treatment Frequency and 2x/wk for 8 visits Duration These treatments will address the objective and functional deficits as defined above. The patient will be advanced safely and appropriately in order for the patient to progress towards his/her prior level of function. Additional exercises will be introduced and as well as a comprehensive home exercise program upon discharge, if needed, ?to ensure carryover of functional gains achieved in the clinic. This treatment plan has been reviewed and agreement upon by the patient.
--- NOTE | 2023-12-10 09:34 | PTOPDC ---
Assessment and note entered by Lily Torres, PT Discharge Information Assessment Status Discharge - Pt Not Present Diagnosis R TKA Onset 09/08/23 Assessment PT Clinical Summary Nikita has received 8 PT sessions, from Oct 20 to Nov 11, then stopped attending PT. Therefore, he will be discharged at this time. The goals were not addressed. Plan of Care PT Services Indicated No
== END 2023-12-10 11:01 | disposition home or self-care (01) ==
LOC: ANHPT 08:15
PROVIDERS: PCP Family Medicine; Visit Provider Orthopaedic Surgery
DX: Z47.1 Aftercare following joint replacement surgery (principal); Z96.651 Presence of right artificial knee joint
CPT/HCPCS: 97014; 97016; 97110; 97140; 97161; 97530; G0283

== ENCOUNTER 2024-07-28 08:41 | Outpatient (CLI) | payer MEDICARE, SELFPAY ==
[2024-07-28 14:43] LABS: Basophils Absolute Auto 0.1 K/mm3 (0.0-0.1); Basophils Percent Auto 0.7 % (0.2-1.2); Eosinophils Absolute Auto 0.1 K/mm3 (0-0.3); Eosinophils Percent Auto 0.7 % (0-4.4); Hematocrit 42.2 % (42.0-52.0); Hemoglobin 14.1 g/dL (14.0-18.0); Immature Granulocyte Absolute 0.02 K/mm3 (0.00-0.031); Immature Granulocyte Percent A 0.3 % (0-0.5); Lymphocytes Absolute Auto 2.09 K/mm3 (0.9-3.2); Lymphocytes Percent Auto 28.1 % (18.3-44.2); Mean Corpuscular HGB Conc 33.4 g/dl (32-36); Mean Corpuscular Hemoglobin 31.3 pg (26-34); Mean Corpuscular Volume 93.6 fl (80-100); Mean Platelet Volume 11.9 fl (7.4-10.4); Monocytes Absolute Auto 0.8 K/mm3 (0.1-0.6); Monocytes Percent Auto 10.6 % (2.6-8.5); Neutrophils Absolute Auto 4.4 K/mm3 (1.3-6.7); Neutrophils Percent Auto 59.6 % (45.5-73.1); Platelet Count Result 179 k/mm3 (150-375); Red Blood Count 4.51 M/mm3 (4.6-6.20); Red Cell Distribution Width 13.1 % (11.5-14.5); White Blood Count 7.4 K/mm3 (4.5-10.0)
[2024-07-28 14:44] LABS: Alanine Aminotransferase 18 U/L (6-50); Albumin Level 4.1 g/dL (3.5-5.1); Alkaline Phosphatase 77 U/L (38-126); Anion Gap 8 mmol/L (4-12); Aspartate Amino Transferase 40 U/L (17-59); Bilirubin,Total 1.1 mg/dL (0.2-1.3); Blood Urea Nitrogen 17 mg/dL (9-20); Calcium 8.8 mg/dL (8.4-10.2); Carbon Dioxide 30 mmol/L (22-30); Chloride 99 mmol/L (98-107); Cholesterol 165 mg/dL (0-200); Estimated Glomerular Filt Rate > 60; Glucose 97 mg/dL (65-110); HDL Direct 40 mg/dL; Potassium 4.3 mmol/L (3.4-5.0); Sodium 137 mmol/L (137-145); Triglycerides 234 mg/dL (<150)
[2024-07-28 14:55] LABS: LDL Cholesterol Direct 80 mg/dL
[2024-07-28 15:42] LABS: Hemoglobin A1C 5.9 % (<5.7)
== END 2024-07-28 08:42 | disposition home or self-care (01) ==
PROVIDERS: PCP Family Medicine; Visit Provider Family Medicine
DX: Z12.5 Encounter for screening for malignant neoplasm of prostate (principal); E78.5 Hyperlipidemia, unspecified; Z13.220 Encounter for screening for lipoid disorders; R73.03 Prediabetes; Z13.228 Encounter for screening for other metabolic disorders; R53.83 Other fatigue
CPT/HCPCS: 36415; 80053; 80061; 83036; 84153; 85025; G0103

== ENCOUNTER 2025-09-13 12:31 | Outpatient (CLI) | payer MEDICARE, SELFPAY ==
--- OUTSIDE RECORDS SUMMARY | 2025-09-13 13:20 | XMS_ITS | Clinical Summary ---
Author Organization [facility] Address [address] [place] [address] [place] [address] Care Team Providers Care Drone Operator Name Role Phone Unavailable Primary Care Provider Unavailabl e Social History Tobacco Use Types Packs/Day Years Used Date Smoking Tobacco: Never Assessed Sex and Gender Information Value Date Recorded Sex Assigned at Not on file Legal Sex Male 11:08 AM CDT Gender Identity Not on file Sexual Orientation Not on file Plan of Treatment Health Maintenance Due Date Last Done Comments DTAP/TDAP/TD VACCINES (1 - Tdap) 1975 COLORECTAL SCREENING 2001 Colorectal Cancer Screening 2001 FIT-DNA Q 3 years 2001 FIT/FOBT Q 1 year 2001 Flex Sig/CT Colonography Q 5 years 2001 PNEUMOCOCCAL VACCINE 50+ YEA RS (1 of 1 - PCV) 2006 ZOSTER VACCINE (1 of 2) 2006 INFLUENZA VACCINE (#1) 2025 09/12/2021, 2019 RSV VACCINE (60+ or ) (1 - 1-dose 75+ series) 2031
--- OUTSIDE RECORDS SUMMARY | 2025-09-13 13:20 | XMS_ITS | Clinical Summary ---
Author Organization [facility] Address [address] [place] [address] Care Team Providers Care Rooter Operator Name Role Phone Tony Larsen Primary Care Provider [phone] Jaycob Campos MD Unavailable + [phone] Allergies Active Allergy Reactions Criticality Noted Date Comments Sulfa (Sulfonamide Antibiotics) Rash Medium 12/24 Trimethoprim Rash Medium 01/12/2023 Medications hydroCHLOROthiaz manuel (HYDRODIURIL) 25 mg tablet Take 1 tablet (25 mg total) by mouth daily 12/19/2022 Active ibuprofen (ADVIL,MOTRIN) 800 mg tablet Take 800 mg by mouth 2 (two) times a day 12/23/2022 Active rosuvastatin (CRESTOR) 10 mg tablet Take 1 tablet (10 mg total) by mouth daily 12/19/2022 Active aspirin 81 mg enteric coated tablet Take 1 tablet (81 mg total) by mouth daily Active Active Problems Problem Noted Date Diagnosed Date Other hyperlipidemia 07/21/2023 Assessment & Plan (01/31/2025 3:46 PM CDT): Impression: Chronic and stable. Plan: Continue rosuvastatin. Assessment & Plan (07/21/2023 2:56 PM CDT): Continue Crestor Carotid stenosis, right 07/21/2023 Assessment & Plan (01/31/2025 3:46 PM CDT): Impression: Patient has a known left carotid occlusion and stable right carotid moderate stenosis. He remains asymptomatic. Plan: Continue ongoing risk factor modifications. -patient to follow-up in 1 year for re-evaluation with repeat carotid duplex. Assessment & Plan (01/20/2024 2:34 PM ROCK ROOM WORKER): Chronic occlusion of the left ICA. Moderate stenosis noted to the right ICA patient remains asymptomatic. Plan: Continue Crestor and aspirin therapy follow-up in 1 year for routine surveillance with carotid duplex. Assessment & Plan (07/21/2023 2:59 PM CDT): Stable moderate right carotid stenosis. There has been no progression from last visit. He would remains asymptomatic denying any vision changes slurred speech or unilateral numbness or weakness. Plan: Continue risk factor modifications compliance with medications. Follow-up in 6 months with a carotid duplex. PVD (peripheral vascular disease) 01/13/2023 Assessment & Plan (01/13/2023 9:01 AM ROCK ROOM WORKER): Suspect ABIs are falsely elevated although patient is completely asymptomatic. No further lower extremity workup needed. Continue exercise and risk factor modification. Occlusion of carotid artery 01/13/2023 Assessment & Plan (07/21/2023 2:57 PM CDT): Chronic occlusion of the left internal carotid artery. Assessment & Plan (01/13/2023 12:49 PM ROCK ROOM WORKER): Known history of chronic carotid artery occlusion per patient. Duplex confirms this finding. No indication for surgical intervention. Patient has moderate stenosis on the right which does not at this point require surgical intervention either. Six month duplex surveillance.. Primary hypertension 01/13/2023 Assessment & Plan (01/31/2025 3:46 PM CDT): Impression: Chronic and elevated. Patient remains asymptomatic. Plan: Recommend patient to monitor blood pressures at home and notify primary care provider for elevated blood pressure for further management. Assessment & Plan (07/21/2023 2:55 PM CDT): Continue hydrochlorothiazide Assessment & Plan (01/13/2023 9:01 AM ROCK ROOM WORKER): Hypertension chronic and controlled. Continue hydrochlorothiazide. Immunizations Immunization Administration Dates Next Due Influenza, Quadrivalent, Hig h Dose, Preservative Free, Intrr 09/12/2021 Influenza, Quadrivalent, Rec ombinant, Egg Free, Preservative Free, Intramuscular 08/30/2020 Surgical History Surgery Date Site/Laterality Comments REPLACEMENT TOTAL KNEE 03/22/2023 - 04/21/2023 Left Medical History Medical History Date Comments Carotid artery disease without cerebral infarcti on Degenerative arthritis HTN (hypertension) Hyperlipidemia PAD (peripheral artery disease) Family History Medical History Relation Name Comments Cancer Brother Cancer Father Hypertension Father No Known Problems Maternal Grandfather No Known Problems Maternal Grandmother Diabetes Mother Hypertension Mother Hypertension Other Mallgnant neoplasm Other No Known Problems Paternal Grandfather No Known Problems Paternal Grandmother Cancer Sister Relation Name Status Comments Brother Father Maternal Grandfather Maternal Grandmother Mother Other Paternal Grandfather Paternal Grandmother Sister Social History Tobacco Use Types Packs/Day Years Used Date Smoking Tobacco: Former Cigarettes Tobacco Cessation:Counseling Given: Not Answered AUDIT-C Answer Date Recorded Q1: How often do you have a drink containing alc ohol? Monthly or less 01/13/2023 Average Number of Drinks Not on file 023 Frequency of Binge Drinking Not on file 12/24 Sex and Gender Information Value Date Recorded Sex Assigned at Not on file Legal Sex Male 3:34 AM ROCK ROOM WORKER Gender Identity Not on file Sexual Orientation Not on file Obstetrics History Last Filed Vital Signs Vital Sign Reading Time Taken Comments Blood Pressure 178/89 01/31/2025 9:10 AM CDT Pulse 76 01/31/2025 9:10 AM CDT Temperature - - Respiratory Rate - - Oxygen Saturation - - Inhaled Oxygen Concentration - - Weight 97.5 kg (215 lb) 01/31/2025 9:10 AM CDT Height 172.7 cm (5' 8) 01/31/2025 9:10 AM CDT Body Mass Index 32.69 01/31/2025 9:10 AM CDT Plan of Treatment Health Maintenance Due Date Last Done Comments Colon Cancer Screening-Colonoscopy 1956 Depression Screening 1956 Fall Risk Assessment 1956 Hepatitis C Screening 1956 Prostate Cancer Screening-PSA 1956 DTaP/Tdap/Td Vaccine (1 - Tdap) 1967 Hepatitis B Screening 1974 Pneumococcal vaccine 65+ (1 of 1 - PCV) 2006 Zoster Vaccine (1 of 2) 2006 Abdominal Aortic Aneurysm (A AA) Screen 2021 Well Visit 65+ 2021 Covid-19 Vaccine ( season) 2025 09/24/2021, 01/30/2021, 01/02/2021 Influenza Vaccine (#1) 2025 09/12/2021, 2019 Insurance MEDICARE [facility] MEDICARE SUPPLEMENT Care Teams Rooter Operator Relationship Specialty Start Date End Date Suzie Tony PCP - General Family Medicine 01/18/23 Jaycob Campos MD [address] [place] [address] Surgeon Vascular Surgery 07/15/23
[2025-09-13 19:01] LABS: Hematocrit 44.8 % (42.0-52.0); Hemoglobin 14.8 g/dL (14.0-18.0); Mean Corpuscular HGB Conc 33.0 g/dl (32-36); Mean Corpuscular Hemoglobin 31.2 pg (26-34); Mean Corpuscular Volume 94.5 fl (80-100); Platelet Count Result 181 k/mm3 (150-375); Red Blood Count 4.74 M/mm3 (4.6-6.20); White Blood Count 6.1 K/mm3 (4.5-10.0)
[2025-09-13 20:15] LABS: Albumin Level 4.3 g/dL (3.5-5.1); Estimated Glomerular Filt Rate > 60
[2025-09-13 22:39] LABS: Alanine Aminotransferase 20 U/L (6-50); Alkaline Phosphatase 90 U/L (38-126); Anion Gap 11 mmol/L (4-12); Aspartate Amino Transferase 32 U/L (17-59); Bilirubin,Total 1.1 mg/dL (0.2-1.3); Blood Urea Nitrogen 16 mg/dL (9-20); Calcium 9.1 mg/dL (8.4-10.2); Carbon Dioxide 26 mmol/L (22-30); Chloride 101 mmol/L (98-107); Cholesterol 162 mg/dL (0-200); Glucose 87 mg/dL (65-110); HDL Direct 51 mg/dL; Potassium 4.4 mmol/L (3.4-5.0); Sodium 138 mmol/L (137-145); Total Protein 7.7 g/dL (6.3-8.2); Triglycerides 124 mg/dL (<150)
[2025-09-13 23:10] LABS: Thyroid Stimulating Hormone 1.410 uIU/mL (0.465-4.680)
[2025-09-13 23:37] LABS: Hemoglobin A1C 5.7 % (<5.7)
[2025-09-13 23:42] LABS: Prostate Specific Antigen 1.3 ng/mL (< OR = 4.0)
== END 2025-09-13 12:32 | disposition home or self-care (01) ==
LOC: ANHGOSHLAB 12:31
PROVIDERS: PCP Family Medicine; Visit Provider Family Medicine
DX: E78.5 Hyperlipidemia, unspecified (principal); I10 Essential (primary) hypertension; E66.9 Obesity, unspecified; R73.03 Prediabetes; Z12.5 Encounter for screening for malignant neoplasm of prostate
CPT/HCPCS: 36415; 80053; 80061; 83036; 84153; 84443; 85027; G0103